=== PATIENT | female | born 1950 | race Caucasian/White ===

== ENCOUNTER 2019-08-16 10:26 | Outpatient (CLI) | payer MEDICARE, OTHER, SELFPAY ==
--- NOTE | ~2019-08-16 | XR_ITS ---
XR chest 2V DATE: 08/16/2019 10:51 INDICATION: Dyspnea TECHNIQUE: PA and lateral views COMPARISON: None FINDINGS: Normal heart size. Aortic calcification. No hilar or mediastinal enlargement. No pulmonary infiltrate or consolidation, pleural effusion or pulmonary vascular congestion or pneumo thorax. There is degenerative spurring of the thoracic spine. Diffuse osteopenia. IMPRESSION: No active cardiopulmonary disease Aortic atherosclerosis Reviewed, dictated and finalized at location A.
== END 2019-08-16 10:27 | disposition home or self-care (01) ==
PROVIDERS: PCP Nurse Practitioner Family; Visit Provider Nurse Practitioner Family
DX: R06.00 Dyspnea, unspecified (principal); I70.0 Atherosclerosis of aorta
CPT/HCPCS: 71046

== ENCOUNTER 2019-08-18 07:38 | Outpatient (CLI) | payer MEDICARE, OTHER, SELFPAY ==
--- NOTE | ~2019-08-18 | CT_ITS ---
EXAMINATION: CT abdomen pelvis wo con DATE: 08/18/2019 08:09 INDICATION: Abdominal mass TECHNIQUE: Computed tomography (CT) of the abdomen and pelvis was performed without intravenous contr ast. Automated exposure control and iterative reconstruction technique were employed. Exam dose: 496 .57 mGy-cm total exam DLP. COMPARISON: 07/11/2008 MRI abdomen 05/23/2013 CT abdomen FINDINGS: The lung bases are clear of infiltrate or consolidation. Normal heart size. No pericardial or pleural effusion. Small sliding hiatal hernia. There is evidence of extensive hepatic masses of variable size, most consistent with hepatic metastat ic disease. The gallbladder is present. No bile duct dilatation. No pancreatic mass lesion, calcification or duct al dilatation is evident. Normal splenic size. Normal left adrenal gland. Approximately 10.7 x 21 mm right adrenal mass. The right kidney measures approximately 10 cm length. 12 mm probable right renal cyst. Probable 12 mm right renal cyst. There is severe left renal atrophy. Two approximately 6.5 mm left renal probable cysts. No ureteral calculus or hydroureteronephrosis. There is extensive calcification of the abdominal aorta but no aneurysm. Iliac and femoral artery kong cifications are noted. No intraperitoneal or retroperitoneal or pelvic mass lesion or adenopathy or a scites is evident. There is minimal perihepatic fluid. Minimal fluid in the paracolic gutters. There is mild to moderate free fluid in the dependent pelvis There is extensive diverticulosis primarily of the sigmoid colon; no evidence of diverticulitis. No b owel obstruction or intraperitoneal free air. Small fat-containing umbilical hernia. Diffuse idiopathic hyperostosis of the lower thoracic spine. There is a transitional lumbosacral vertebra. There is degenerative disc disease of the lumbar spine as well as degenerative change at the apophyseal joints. IMPRESSION: Extensive hepatic masses suggesting metastatic disease. Chronic right adrenal mass, likely an adrenal adenoma Severe left renal atrophy Bilateral renal probable cysts Small sliding hiatal hernia Colonic diverticulosis Reviewed, dictated and finalized at Location A. Reviewed, dictated and finalized at location A.
== END 2019-08-18 07:39 | disposition home or self-care (01) ==
PROVIDERS: PCP Nurse Practitioner Family; Visit Provider Nurse Practitioner Family
DX: R19.00 Intra-abdominal and pelvic swelling, mass and lump, unspecified site (principal); R16.0 Hepatomegaly, not elsewhere classified; E27.9 Disorder of adrenal gland, unspecified; N26.1 Atrophy of kidney (terminal); K44.9 Diaphragmatic hernia without obstruction or gangrene; K57.90 Diverticulosis of intestine, part unspecified, without perforation or abscess without bleeding
CPT/HCPCS: 74176

== ENCOUNTER 2019-08-21 00:06 | Outpatient (CLI) | payer MEDICARE, OTHER, SELFPAY ==
[2019-08-21 16:10] LABS: SARS-CoV-2 RNA PCR Negative
== END 2019-08-21 00:07 | disposition home or self-care (01) ==
LOC: ANHCOVIDDT 00:06
PROVIDERS: PCP Nurse Practitioner Family; Visit Provider Internal Medicine Gastroenterology
DX: Z01.818 Encounter for other preprocedural examination (principal); Z11.59 Encounter for screening for other viral diseases; R10.13 Epigastric pain
CPT/HCPCS: 87635; C9803; U0003

== ENCOUNTER 2019-08-23 01:21 | Day surgery (SDC) | payer MEDICARE, OTHER, SELFPAY ==
[2019-08-22 11:35] VITALS: BMI 28.3
[2019-08-23 06:54] VITALS: BP 176/78; PULSE 92; RESP 18; TEMP 36.6; O2SAT 100; BMI 28.3
[2019-08-23] MEDS: LACTATED RINGERS 1,000 ML 150 ML IV CONT (07:08)
--- NOTE | 2019-08-23 07:09 | P.HP_ITS ---
History of Present Illness History of Present Illness Consent: Risks, benefits, and alternatives have been discussed and questions answered. Patient agrees to proceed with procedure. Chief complaint: Nausea, Vomiting Narrative: Kathrin Payton is a 68 year old W female Referred for gastroscopy for evaluation of a several month history of intermittent nausea vomiting and right upper quadrant abdominal and epigastric pain. Patient also has a 10 lb weight loss. She has had blood work through her primary physician on fortunately do not have access to the results. Patient did have a CT scan of her abdomen and pelvis and [facility] do have a copy of. This revealed extensive hepatic metastasis without a primary identified. Patient states she was to have a colonoscopy performed a year ago for blood was unable to tolerate her prep and thus did not have this done. She did not call to have a rescheduled. She did not have a colo guard test. Her father had colon cancer. I am not sure if she has had a CEA level, or other tumor markers. Meds Home Medications and Allergies Home Medications Medication Instructions Recorded Confirmed Type atorvastatin 20 mg PO DAILY 08/22/19 08/23/19 History bupropion HCl 150 mg PO DAILY 08/22/19 08/23/19 History insulin glargine U-300 conc 8 unit SUBCUT DAILY 08/22/19 08/23/19 History [Toujeo SoloStar U-300 Insulin] insulin lispro See Rx Instructions .ROUTE .COMPLEX 08/22/19 08/23/19 History levalbuterol tartrate 2 puff INHALATION BID PRN 08/22/19 08/23/19 History levothyroxine [Synthroid] 100 mcg PO DAILY 08/22/19 08/23/19 History lisinopril 20 mg PO DAILY 08/22/19 08/23/19 History prednisone 5 mg PO WEEKLY 08/22/19 08/23/19 History vit C,F-Vs-cnvnm-lutein-zeaxan 1 cap PO DAILY 08/22/19 08/23/19 History [Healthy Eyes Lutein-Zeaxanthin] Allergies Allergy/AdvReac Type Severity Reaction Status Date / Time codeine AdvReac Intermediate NAUSEA Verified 08/23/19 06:53 oxycodone AdvReac Intermediate Dizziness Verified 08/23/19 06:53 Contrast Media Allergy Intermediate HIVES Uncoded 08/23/19 06:53 Vital Signs Vital Signs - 24 hr 08/23/19 06:54 Temperature 36.6 C Pulse Rate 92 Respiratory Rate 18 Blood Pressure 176/78 H Pulse Oximetry 100 Exam Narrative: Exam Narrative: Lungs clear to auscultation percussion cardiovascular exam regular rate without murmur gallop abdominal exam bowel sounds are present. There is tenderness in the right upper quadrant epigastric region. Hepatomegaly is present. No ascites detected. Extremities without e jose Assessment and Plan Additional Plan patient referred for gastroscopy for evaluation of upper abdominal pain nausea vomiting a CT scan which reveals diffuse hepatic metastasis.
[2019-08-23 07:17] LABS: Glucose Point of Care 294 (65-105)
[2019-08-23 07:17] LABS: Glucose Point of Care 308 (65-105)
--- NOTE | 2019-08-23 07:35 | WPDANESEPPF ---
Anes - Initial Pre Proc Eval Procedure: Operation Date: 08/23/19 08:00 Proposed Procedures p Esophagogastroduodenoscopy - Charlie Dyer MD Date/Time: 08/23/19 07:35 Surgeon: Charlie Dyer MD Pre Op Diagnosis: Nausea, Vomiting Patient Data Age: 68 Gender: F Height: 5 ft 3 in Weight: 72.6 kg Last Vital Signs Temp 97.9 F 08/23/19 06:54 Pulse 92 08/23/19 06:54 Resp 18 08/23/19 06:54 BP 176/78 H 08/23/19 06:54 Pulse Ox 100 08/23/19 06:54 Allergies Allergy/AdvReac Type Severity Reaction Status Date / Time codeine AdvReac Intermediate NAUSEA Verified 08/23/19 06:53 oxycodone AdvReac Intermediate Dizziness Verified 08/23/19 06:53 Contrast Media Allergy Intermediate HIVES Uncoded 08/23/19 06:53 Home Medications Medication Instructions Recorded Confirmed Type atorvastatin 20 mg PO DAILY 08/22/19 08/23/19 History bupropion HCl 150 mg PO DAILY 08/22/19 08/23/19 History insulin glargine U-300 conc 8 unit SUBCUT DAILY 08/22/19 08/23/19 History [Toujeo SoloStar U-300 Insulin] insulin lispro See Rx Instructions .ROUTE .COMPLEX 08/22/19 08/23/19 History levalbuterol tartrate 2 puff INHALATION BID PRN 08/22/19 08/23/19 History levothyroxine [Synthroid] 100 mcg PO DAILY 08/22/19 08/23/19 History lisinopril 20 mg PO DAILY 08/22/19 08/23/19 History prednisone 5 mg PO WEEKLY 08/22/19 08/23/19 History vit C,Y-Mg-eilut-lutein-zeaxan 1 cap PO DAILY 08/22/19 08/23/19 History [Healthy Eyes Lutein-Zeaxanthin] Laboratory Tests 08/23/19 08/23/19 07:12 07:14 POC Capillary Glucose 308 mg/dl H mg/dl 294 mg/dl H mg/dl (65-105) (65-105) Patient hx anesthesia problems: none Family hx anesthesia problems: none Anes - Eval Final PreProcedure Day of Procedure 08/23/19 07:35 Patient weight: overweight Heart: regular rate and rhythm Lungs: clear to auscultation Airway: Mallampati scale class II Neurological: alert and oriented Last oral intake: >/= 8 hours ASA classification: IV Emergent: no Anesthetic plan: proceed Anesthesia type and monitoring: general GIVS and standard monitoring Informed Consent: The patient's anesthetic plan and its attendant risks and benefits were discussed with the patient/family/POA. Questions were solicited and answers provided to the satisfaction of the patient/family/POA.
[2019-08-23 08:16] VITALS: BP 124/73; PULSE 91; RESP 20; O2SAT 100
[2019-08-23 08:26] VITALS: BP 138/86; PULSE 89; RESP 19; O2SAT 100
[2019-08-23 08:32] LABS: Glucose Point of Care 265 (65-105)
[2019-08-23 08:36] VITALS: BP 138/65; PULSE 78; RESP 21; O2SAT 99
== END 2019-08-23 08:50 | disposition home or self-care (01) ==
PROVIDERS: PCP Nurse Practitioner Family; Visit Provider Internal Medicine Gastroenterology
PROC: 0DJ08ZZ Inspection of Upper Intestinal Tract, Via Natural or Artificial Opening Endoscopic (ICD-10-PCS; CPT 43235; principal; 2019-08-23 08:00)
DX: K44.9 Diaphragmatic hernia without obstruction or gangrene (principal); K29.50 Unspecified chronic gastritis without bleeding; R93.2 Abnormal findings on diagnostic imaging of liver and biliary tract; R63.4 Abnormal weight loss; Z80.0 Family history of malignant neoplasm of digestive organs; Z79.4 Long term (current) use of insulin
CPT/HCPCS: 43239; 88305; J2704; J7120

== ENCOUNTER 2019-08-24 15:21 | Outpatient (CLI) | payer MEDICARE, OTHER, SELFPAY ==
--- NOTE | ~2019-08-24 | MM_ITS ---
EXAMINATION: MM screening erik BI w tarsha HISTORY: Screening mammogram TECHNIQUE: Craniocaudal and mediolateral oblique 3-D tomosynthesis images were obtained and synthetic 2-D images were generated. CAD analysis was submitted and interpreted. COMPARISON: No prior mammogram is available for comparison at this institution. BREAST PARENCHYMAL COMPOSITION: The breasts are almost entirely fatty. FINDINGS: RIGHT BREAST: There is no evidence of suspicious mass, calcification, or architectural distortion to suggest malignancy. LEFT BREAST: There are grouped indeterminate calcifications in the middle third of the central breast 4.5 cm from the nipple. IMPRESSION: 1. Indeterminate left breast calcifications. 2. Magnification views are recommended. BI-RADS Category 0: Incomplete: Needs additional imaging evaluation. Reviewed, dictated and finalized at location A.
--- NOTE | ~2019-08-24 | CT_ITS ---
EXAMINATION: CT lung screening DATE: 08/24/2019 16:35 INDICATION: Low dose screening. History of liver metastases. TECHNIQUE: Computed tomography (CT) of the chest was performed without intravenous contrast. The dose -length product was 116.95 mGy-cm. Automated exposure control and iterative reconstruction technique were employed. COMPARISON: CT abdomen dated 08/18/2019 FINDINGS: There is a right upper lobe mass measuring 1.8 x 1.3 cm, image 41. There are nonenlarged me diastinal lymph nodes, nonspecific. No significant pleural or pericardial effusion. Heart size is nor mal. There is a 3 mm fissural nodule on the right, coronal image 54. There is a 3 mm right upper lobe nodule, image 28. There is a subsolid 5 mm nodule left upper lobe. There is a 3 mm left lower lobe n odule, image 85. There are multiple hypodense masses of the liver, most likely metastases. There is an atrophic left k idney. There is small amount of perihepatic ascites. IMPRESSION: 1. Right upper lobe mass measuring 1.8 cm, concerning for bronchogenic carcinoma. Recommend percutane ous biopsy or PET/CT scan. 2: Multiple additional pulmonary nodules measuring 5 mm or less as described above which may be infec tious/inflammatory, although metastatic disease not excluded. 3: Multiple hypodense masses of the liver, concerning for metastatic disease. Reviewed, dictated and finalized at location A. IMPRESSION: 1. Right upper lobe mass measuring 1.8 cm, concerning for bronchogenic carcinom a. Recommend percutaneous biopsy or PET/CT scan. 2: Multiple additional pulmonary nodules measuring 5 mm or less as described ab ove which may be infectious/inflammatory, although metastatic disease not exclu ded. 3: Multiple hypodense masses of the liver, concerning for metastatic disease.
== END 2019-08-24 15:22 | disposition home or self-care (01) ==
PROVIDERS: PCP Nurse Practitioner Family; Visit Provider Nurse Practitioner Family
DX: Z12.31 Encounter for screening mammogram for malignant neoplasm of breast (principal); Z12.2 Encounter for screening for malignant neoplasm of respiratory organs; Z87.891 Personal history of nicotine dependence; R91.8 Other nonspecific abnormal finding of lung field; R92.8 Other abnormal and inconclusive findings on diagnostic imaging of breast
CPT/HCPCS: 77063; 77067; G0297

== ENCOUNTER 2019-09-01 12:46 | Outpatient (CLI) | payer MEDICARE, OTHER, SELFPAY ==
--- NOTE | 2019-09-01 12:49 | ECG_ITS ---
Measurements Intervals [place] Rate: 81 P: 66 SD: 139 QRS: 33 QRSD: 97 T: 7 QT: 399 QTc: 465 Interpretive Statements SINUS RHYTHM INCOMPLETE RIGHT BUNDLE BRANCH BLOCK LOW QRS VOLTAGE IN PRECORDIAL LEADS BORDERLINE ST-T WAVE ABNORMALITY- ANT/INF LEADS BASELINE ARTIFACT- I, III, AVL, AVF, V6 BORDERLINE ECG Electronically Signed On 09-01-2019 13:13:50 CDT by Hamilton Hein D.O.
[2019-09-01 13:35] LABS: Basophils Absolute Auto 0.1 K/mm3 (0.0-0.1); Basophils Percent Auto 0.6 % (0.2-1.2); Eosinophils Absolute Auto 0.2 K/mm3 (0-0.3); Eosinophils Percent Auto 1.3 % (0-4.4); Hematocrit 39.9 % (37.0-47.0); Hemoglobin 12.4 g/dL (12.0-15.0); Immature Granulocyte Absolute 0.07 K/mm3 (0.00-0.031); Immature Granulocyte Percent A 0.5 % (0-0.5); Immature Platelet Fraction Pct 12.7 % (0.9-11.2); Lymphocytes Absolute Auto 1.01 K/mm3 (0.9-3.2); Lymphocytes Percent Auto 7.1 % (18.3-44.2); Mean Corpuscular HGB Conc 31.1 g/dl (32-36); Mean Corpuscular Hemoglobin 28.9 pg (26-34); Mean Platelet Volume 14.2 fl (7.4-10.4); Monocytes Absolute Auto 1.1 K/mm3 (0.1-0.6); Monocytes Percent Auto 7.7 % (2.6-8.5); Neutrophils Absolute Auto 11.9 K/mm3 (1.3-6.7); Neutrophils Percent Auto 82.8 % (45.5-73.1); Platelet Count Result 131 k/mm3 (150-375); Red Blood Count 4.29 M/mm3 (4.2-5.4); Red Cell Distribution Width 14.7 % (11.5-14.5); White Blood Count 14.3 K/mm3 (4.5-10.0)
[2019-09-01 13:45] LABS: Blood Urea Nitrogen 30 mg/dL (7-17); Calcium 8.7 mg/dL (8.4-10.2); Carbon Dioxide 22 mmol/L (22-30); Chloride 109 mmol/L (98-107); Estimated Glomerular Filt Rate 35; Glucose 182 mg/dL (65-105); Potassium 4.1 mmol/L (3.4-5.0); Sodium 137 mmol/L (137-145)
[2019-09-01 13:48] LABS: Prothrombin Time 13.2 Seconds (11.1-14.7)
[2019-09-01 13:49] LABS: Partial Thromboplastin Time 29.7 SECONDS (22.3-36.8)
== END 2019-09-01 12:47 | disposition home or self-care (01) ==
LOC: ANHSURGERY 12:49
PROVIDERS: Anesthesiology; PCP Nurse Practitioner Family; Visit Provider Surgery
DX: I10 Essential (primary) hypertension (principal); E11.9 Type 2 diabetes mellitus without complications; C34.90 Malignant neoplasm of unspecified part of unspecified bronchus or lung; I45.10 Unspecified right bundle-branch block
CPT/HCPCS: 36415; 80048; 85025; 85055; 85610; 85730; 93005

== ENCOUNTER 2019-09-04 07:07 | Outpatient (CLI) | payer MEDICARE, OTHER, SELFPAY ==
[2019-08-29 10:28] VITALS: BMI 28.3
[2019-09-04] VITALS (9 sets, daily range): BP systolic 138–155; BP diastolic 69–91; PULSE 70–84; RESP 12–20; TEMP 36.3; O2SAT 97–99
--- NOTE | ~2019-09-04 | US_ITS ---
EXAMINATION: US biopsy liver DATE: 09/04/2019 09:58 INDICATION: Malignant neoplasm of the right lung with liver metastases TECHNIQUE: The procedure including the risks and benefits was discussed with the patient. Risks discu ssed included bleeding and infection. The patient understood the risks and agreed to proceed. The sk in overlying the liver was prepped and draped in usual sterile fashion. Anesthetic was administered with 1% lidocaine subcutaneously. An 18 gauge core biopsy needle was advanced under continuous ultra sound observation to the lesion of interest. 3 core biopsy specimens were obtained. The needle was removed and the entry site was cleaned and dressed. Post procedure ultrasound demonstrated no hemorr krish. FINDINGS: Ultrasound images demonstrate biopsy needle advanced into a subcapsular mass in the medial segment of the left hepatic lobe which results in focal bulging of the liver capsule. IMPRESSION: 1. Successful Ultrasound-guided biopsy of one of numerous masses scattered throughout the liver. Reviewed, dictated and finalized at location A. IMPRESSION: 1. Successful Ultrasound-guided biopsy of one of numerous masses scattered thro ughout the liver.
--- NOTE | ~2019-09-04 | MR_ITS ---
EXAMINATION: MR brain/brain stem wo con DATE: 09/04/2019 11:15 INDICATION: Malignant neoplasm of right lung. TECHNIQUE: Magnetic resonance imaging (MRI) of the brain and brainstem was performed without intraven ous contrast due to low estimated GFR. Sequences included sagittal and axial T1-weighted FSE, axial d iffusion-weighted FS EPI, axial T2*-weighted GRE, axial T2-weighted FLAIR Propeller, and axial T2-rajinder ghted Propeller. Apparent diffusion coefficient (ADC) maps were created. COMPARISON: None. FINDINGS: There are scattered areas of nonspecific increased T2-weighted signal intensity in the cere bral white matter, which is within normal limits for the patient's age. There is no intracranial hemo rrhage, acute infarction, or abnormal intracranial mass lesion. The ventricles are normal in size. Th e paranasal sinuses are clear. The orbits are normal. The mastoid air cells are normal. IMPRESSION: 1. Normal aging brain. Reviewed, dictated and finalized at location E. IMPRESSION: 1. Normal aging brain.
[2019-09-04 07:28] LABS: Immature Platelet Fraction Pct 11.2 % (0.9-11.2); Mean Platelet Volume 13.1 fl (7.4-10.4); Platelet Count Result 137 k/mm3 (150-375)
[2019-09-04 07:37] LABS: INR 1.1; Prothrombin Time 13.8 Seconds (11.1-14.7)
[2019-09-04 08:05] LABS: Estimated CRCL calculation 28 ml/min; Estimated Glomerular Filt Rate 30
--- NOTE | 2019-09-04 10:01 | SUR.PHASEII ---
1000- assisted to recliner. Gait steady. bandaid to upper abd dry and intact. saline lock right forearm.
[2019-09-04 11:33] LABS: Glucose Point of Care 196 (65-105)
--- NOTE | 2019-09-04 13:01 | SUR.PHASEII ---
1300- pt blood sugar at 1130 was 197
== END 2019-09-04 14:03 | disposition home or self-care (01) ==
PROVIDERS: Radiology Diagnostic Radiology; PCP Nurse Practitioner Family; Visit Provider Internal Medicine Hematology & Oncology
DX: C34.91 Malignant neoplasm of unspecified part of right bronchus or lung (principal); C22.7 Other specified carcinomas of liver
CPT/HCPCS: 36415; 47000; 70551; 76942; 85049; 85055; 85610; 88307; 88342

== ENCOUNTER 2019-09-05 00:14 | Outpatient (CLI) | payer MEDICARE, OTHER, SELFPAY ==
[2019-09-05 18:58] LABS: SARS-CoV-2 RNA PCR Negative
== END 2019-09-05 00:15 | disposition home or self-care (01) ==
LOC: ANHCOVIDDT 00:14
PROVIDERS: PCP Nurse Practitioner Family; Visit Provider Surgery
DX: Z01.812 Encounter for preprocedural laboratory examination (principal); Z11.59 Encounter for screening for other viral diseases
CPT/HCPCS: 87635; C9803; U0003

== ENCOUNTER 2019-09-06 01:04 | Day surgery (SDC) | payer MEDICARE, OTHER, SELFPAY ==
[2019-08-31 09:19] VITALS: BMI 28.3
--- NOTE | ~2019-09-06 | XR_ITS ---
EXAMINATION: XR fl guide central line place DATE: 09/06/2019 15:42 INDICATION: Port placement. TECHNIQUE: 31 intraoperative fluoroscopic images of the chest were obtained. I was not present. Fluor oscopy exposure time was 21 seconds. COMPARISON: Chest CT 08/24/2019 FINDINGS: There is a right internal jugular port with tip at superior cavoatrial junction. IMPRESSION: 1. Right internal jugular port with tip at superior cavoatrial junction. Reviewed, dictated and finalized at location A.
--- NOTE | ~2019-09-06 | XR_ITS ---
EXAMINATION: XR chest port-a-cath/central DATE: 09/06/2019 16:06 INDICATION: Port placement. TECHNIQUE: A single frontal view of the chest was obtained. COMPARISON: Chest 2 views 08/16/2019 FINDINGS: There is a nodule in right lung upper lobe. No pleural effusion or pneumothorax. The heart size is normal. There is a right internal jugular port with tip in superior vena cava. IMPRESSION: 1. Port tip in superior vena cava. 2. Nodule in right lung upper lobe, consistent with primary bronchogenic carcinoma. Reviewed, dictated and finalized at location A. IMPRESSION: 1. Port tip in superior vena cava. 2. Nodule in right lung upper lobe, consistent with primary bronchogenic carcin modest[place].
[2019-09-06 12:49] VITALS: BP 145/63; PULSE 90; RESP 20; TEMP 36.4; O2SAT 100
--- NOTE | 2019-09-06 13:00 | WPDANESEPPF ---
Anes - Initial Pre Proc Eval Procedure: Operation Date: 09/06/19 14:30 Proposed Procedures p Insertion Port A Cath - Amando Mendoza MD Date/Time: 09/06/19 13:00 Surgeon: Amando Mendoza MD Pre Op Diagnosis: malignant neoplasm right lung unspecified site Patient Data Age: 68 Gender: F Height: 5 ft 3 in Weight: 71.3 kg Last Vital Signs Temp 97.5 F L 09/06/19 12:49 Pulse 90 09/06/19 12:49 Resp 20 09/06/19 12:49 BP 145/63 H 09/06/19 12:49 Pulse Ox 100 09/06/19 12:49 Allergies Allergy/AdvReac Type Severity Reaction Status Date / Time codeine AdvReac Intermediate NAUSEA Verified 09/06/19 12:44 oxycodone AdvReac Intermediate Dizziness, Verified 09/06/19 12:44 vomiting Contrast Media Allergy Intermediate HIVES Uncoded 09/06/19 12:44 Home Medications Medication Instructions Recorded Confirmed Type Healthy Eyes Lutein-Zeaxanthin 1 cap PO DAILY 08/22/19 09/06/19 History Toujeo SoloStar U-300 Insulin 8 unit SUBCUT DAILY 08/22/19 09/06/19 History atorvastatin 20 mg PO DAILY 08/22/19 09/06/19 History bupropion HCl 150 mg PO DAILY 08/22/19 09/06/19 History insulin lispro See Rx Instructions .ROUTE .COMPLEX 08/22/19 09/06/19 History levalbuterol tartrate 2 puff INHALATION BID PRN 08/22/19 09/06/19 History levothyroxine [Synthroid] 100 mcg PO DAILY 08/22/19 09/06/19 History lisinopril 20 mg PO DAILY 08/22/19 09/06/19 History prednisone 5 mg PO WEEKLY 08/22/19 09/06/19 History docusate sodium [Stool Softener] 50 mg PO DAILY 08/31/19 09/06/19 History famotidine [Pepcid] 20 mg PO DAILY 08/31/19 09/06/19 History Patient hx anesthesia problems: none Family hx anesthesia problems: none PMFSH Past Medical History Medical History (Updated 09/06/19 @ 13:00 by Darrius Hooks MD) Diabetes GERD (gastroesophageal reflux disease) Hyperlipidemia Hypertension Hypothyroid Liver carcinoma Lung cancer Anes - Eval Final PreProcedure Day of Procedure 09/06/19 13:00 Patient weight: normal and overweight Heart: regular rate and rhythm Lungs: clear to auscultation Airway: Mallampati scale class II Neurological: alert and oriented Last oral intake: >/= 8 hours ASA classification: IV Emergent: no Anesthetic plan: proceed Anesthesia type and monitoring: general GIVS and standard monitoring Informed Consent: The patient's anesthetic plan and its attendant risks and benefits were discussed with the patient/family/POA. Questions were solicited and answers provided to the satisfaction of the patient/family/POA.
[2019-09-06 13:06] LABS: Glucose Point of Care 189 (65-105)
[2019-09-06] MEDS: LACTATED RINGERS 1,000 ML 30 ML IV CONT (13:09)
--- NOTE | 2019-09-06 14:15 | PM.HPGS ---
History of Present Illness History of Present Illness Consent: Risks, benefits, and alternatives of a Port-A-Cath have been discussed and questions answered. Patient agrees to proceed with procedure. Chief complaint: malignant neoplasm right lung unspecified site Narrative: Kathrin Payton is a 68 year old female who has a history of smoking approximately 1 pack a day for 40 years. She has since developed bilateral lower extremity swelling along with checks chest aching S chest x-ray done more than a month ago came back negative free gesture heart failure but showed several masses. A CT scan of the abdomen and pelvis was completed showing liver metastasis and a fairly large 10 x 21 mm right adrenal mass. A chest CT on August 23 showed a 1.8 x 1.3 cm right upper lobe lung mass. Patient and Dr. Mills are planning some chemotherapy to try to give her some more time period also to shrink these tumors. I have been asked to place a Port-A-Cath. See plan below. Review of Systems Constitutional: Constitutional: Reports no additional constitutional complaints, Reports fatigue and Denies malaise Eyes: Eyes: Denies change in vision and Denies loss of vision ENT: Reports Normal hearing present, Denies change in voice, Denies dizziness, Denies hoarseness and Denies sore throat Cardiovascular: Cardiovascular: Denies chest pain, Denies leg edema and Denies dyspnea Respiratory: Respiratory: Denies cough, Denies dyspnea and Denies wheezing Comments: Patient has lung cancer on the right by chest x-ray Gastrointestinal: Gastrointestinal: Denies hematochezia, Denies change in bowel habits and Denies heartburn Genitourinary: Genitourinary: Denies urinary frequency and Denies urinary incontinence Neurologic: Reports Normal hearing present, Denies confusion, Denies dizziness, Denies loss of vision, Denies memory loss and Denies seizure-like activity Psychiatric: Psychiatric: Denies confusion, Denies depression and Denies memory loss Endocrine: Endocrine: Denies cold intolerance and Reports fatigue Hematologic/Lymphatic: Hematologic/Lymphatic: Denies easy bleeding and Denies easy bruising Allergic/Immunologic: Allergic/Immunologic: Denies wheezing PMFSH Past Medical History Medical History (Updated 09/06/19 @ 14:23 by Amando Mendoza MD) Diabetes GERD (gastroesophageal reflux disease) Hyperlipidemia Hypertension Hypothyroid Liver carcinoma Lung cancer (~06/2019) Meds Home Medications and Allergies Home Medications Medication Instructions Recorded Confirmed Type Healthy Eyes Lutein-Zeaxanthin 1 cap PO DAILY 08/22/19 09/06/19 History Touwinnie CummingsoStar U-300 Insulin 8 unit SUBCUT DAILY 08/22/19 09/06/19 History atorvastatin 20 mg PO DAILY 08/22/19 09/06/19 History bupropion HCl 150 mg PO DAILY 08/22/19 09/06/19 History insulin lispro See Rx Instructions .ROUTE .COMPLEX 08/22/19 09/06/19 History levalbuterol tartrate 2 puff INHALATION BID PRN 08/22/19 09/06/19 History levothyroxine [Synthroid] 100 mcg PO DAILY 08/22/19 09/06/19 History lisinopril 20 mg PO DAILY 08/22/19 09/06/19 History prednisone 5 mg PO WEEKLY 08/22/19 09/06/19 History docusate sodium [Stool Softener] 50 mg PO DAILY 08/31/19 09/06/19 History famotidine [Pepcid] 20 mg PO DAILY 08/31/19 09/06/19 History Allergies Allergy/AdvReac Type Severity Reaction Status Date / Time codeine AdvReac Intermediate NAUSEA Verified 09/06/19 12:44 oxycodone AdvReac Intermediate Dizziness, Verified 09/06/19 12:44 vomiting Contrast Media Allergy Intermediate HIVES Uncoded 09/06/19 12:44 Vital Signs Vital Signs - 24 hr 09/06/19 12:49 Temperature 36.4 C L Pulse Rate 90 Respiratory Rate 20 Blood Pressure 145/63 H Pulse Oximetry 100 Exam Const: General: cooperative, healthy appearing, no acute distress, well developed and alert; No confusion Nutritional Appearance: well nourished Orientation/consciousness: patient oriented x3 and No confusion Limitations: no limitati
[2019-09-06] MEDS: ceFAZolin 2 GM/D5W 50 ML 2 GM/50 ML BAG IVPB (14:46)
[2019-09-06] MEDS: IBUPROFEN IV 800 MG/200 ML 800 MG/200 ML BAG 400 MG IVPB (14:53)
[2019-09-06] MEDS: BUPIVACAINE/EPINEPHRINE 0.5% 30 ML VIAL 20 ML INFILTRATE (15:10)
[2019-09-06] MEDS: HEPARIN SODIUM 5,000 UNITS/ML VIAL 5000 UNITS IRRIGATION (15:11)
[2019-09-06 15:54] VITALS: BP 135/63; PULSE 69; RESP 20; TEMP 36.3
--- NOTE | 2019-09-06 15:54 | PM.PROC ---
Procedure Note - Detailed Date of procedure: 09/06/19 Pre-op diagnosis: malignant neoplasm right lung unspecified site Post-op diagnosis: same Procedure performed: placement of Port-A-Cath Description of procedure: Patient was seen and marked in the pre-op area prior to coming to the OR. Patient was brought to the operating room. She was placed supine on the operating table and general IV sedation was induced. The nurse addictions counselor assistant provided oxygen and IV sedation. Patient's head was carefully turned to the left side while in the supine position and the patient's entire neck and anterior chest on both sides was prepped and draped in the usual sterile fashion. Following this the appropriate time-out was completed confirming procedure and patient. We confirmed that all the needed equipment was present in the room. Following this the ultrasound probe was draped into the field and using the probe we carefully identified the carotid artery and jugular vein on the right neck. I marked the skin directly over the Rt. internal jugular vein. Following this, using the continuous ultrasound guidance, a Cook needle was placed through the skin into this vein with one stick. I then was able to draw back good dark blood. Once this was completed a guidewire using a J-tip was advanced through the needle and then the needle and the guidewire cover were withdrawn. C-arm fluoroscopy was used to confirm that the guidewire was nicely in the central venous system. Once this was confirmed with the C - arm I preceded on by making the pocket for the port on the patient's anterior right chest approximately 3 centimeters below the clavicle overlying the chest wall. Local anesthetic was infiltrated into the skin where there was a transverse incision marked out. Incision was made and we made a pocket inferior to the incision with just a little dissection superior. The Bard low-profile port was tried in the pocket and seemed to fit well. Following this the catheter which had been placed on a tunneling device was tunneled from the port site on the anterior right chest up to the right neck where a small incision had been made with an #11 blade knife. Then the catheter was pulled through so that we would have 15 centimeters to put into the central venous system once the dilation took place. Following this we placed the dilator and sheath over the guidewire in the jugular vein and carefully dilated the tract into the central venous system. The guidewire and dilator were then removed, carefully covering the end of the sheath to prevent air embolus. The end of the catheter which had been cut off straight across and the tip checked was then inserted into the sheath and into the neck. I then carefully pulled the 2 arms of the tear-away sheath away as the zoning assistant held the catheter in position with a DeBakey forceps. Following this we checked the position of the catheter with C-arm fluoroscopy confirming that the tip seemed to be in the distal superior vena cava near the junction with the right atrium. I felt that it was in good position and so the rest of the catheter was pulled down toward the feet into the port site. We then measured to the appropriate position to cut the catheter to attach it to the port stem. Then the connector sealing device for the catheter port was placed onto the catheter and then the catheter cut to the appropriate length and inserted onto the stem of the port. Then the connector was advanced onto the stem over the catheter sealing it to the port. A single 3- 0 Prolene suture was also used during this to suture the connector to the port and to the underlying musculature. Following this at one other site the port was sutured to the underlying musculature with the 3-0 Proline. Both prior to connecting the catheter to the port and then using a straight Esteves needle following this connection, the port was aspirated of good dark blood and flushed with heparinized saline to ke
[2019-09-06 16:15] VITALS: BP 149/52; PULSE 73; RESP 14
[2019-09-06 16:45] VITALS: RESP 16
== END 2019-09-06 16:58 | disposition home or self-care (01) ==
PROVIDERS: PCP Nurse Practitioner Family; Visit Provider Surgery
PROC: (CPT 36561; principal; 2019-09-06 14:30)
DX: C34.11 Malignant neoplasm of upper lobe, right bronchus or lung (principal); C78.7 Secondary malignant neoplasm of liver and intrahepatic bile duct; E27.9 Disorder of adrenal gland, unspecified; I10 Essential (primary) hypertension; E11.9 Type 2 diabetes mellitus without complications; Z79.4 Long term (current) use of insulin; E78.5 Hyperlipidemia, unspecified; E03.9 Hypothyroidism, unspecified; K21.9 Gastro-esophageal reflux disease without esophagitis; Z88.6 Allergy status to analgesic agent; Z91.041 Radiographic dye allergy status
CPT/HCPCS: 36561; 77001; C1788; J0690; J1644; J1741; J2250; J2405; J2704; J3010; J7030; J7120

== ENCOUNTER 2019-09-20 09:06 | Outpatient (CLI) | payer MEDICARE, OTHER, SELFPAY ==
[2019-09-19 15:33] VITALS: BMI 27.2
[2019-09-20] VITALS (9 sets, daily range): BP systolic 137–161; BP diastolic 59–94; PULSE 74–91; RESP 16–20; O2SAT 96–100
--- NOTE | ~2019-09-20 | XR_ITS ---
EXAMINATION: XR chest 1V portable DATE: 09/20/2019 12:11 INDICATION: One hour post right lung biopsy. TECHNIQUE: frontal view of the chest was obtained. COMPARISON: Chest radiograph dated 09/20/2019 at 11:12 AM FINDINGS: Small right apical pneumothorax. The biopsied nodule can be seen in the right upper lung zone. No oth er airspace opacities, pulmonary edema, pleural effusion or left-sided pneumothorax. The cardiomedias tinal silhouette is normal and remains midline. Right internal jugular central venous port catheter w ith distal tip at the midsuperior vena cava. IMPRESSION: 1. Interval development of a small right apical pneumothorax. Per discussion with the patient's nurse she is maintaining oxygen saturation of 97% on room air. Reviewed, dictated and finalized at location A. IMPRESSION: 1. Interval development of a small right apical pneumothorax. Per discussion wi th the patient's nurse she is maintaining oxygen saturation of 97% on room air.
--- NOTE | ~2019-09-20 | XR_ITS ---
EXAMINATION: XR chest 1V DATE: 09/20/2019 11:14 INDICATION: Status post percutaneous biopsy of a right upper lobe nodule. TECHNIQUE: frontal view of the chest was obtained. COMPARISON: 09/06/2019 FINDINGS: Right upper lobe nodule projecting over the right mid lung zone. No other airspace opacities, pulmona ry edema, pleural effusion or pneumothorax. The cardiomediastinal silhouette is normal. Right interna l jugular central venous port catheter with distal tip at the midsuperior vena cava. IMPRESSION: 1. No pneumothorax or other acute cardiopulmonary disease post biopsy of a right upper lobe nodule wh ich is concerning for malignancy. Reviewed, dictated and finalized at location A. IMPRESSION: 1. No pneumothorax or other acute cardiopulmonary disease post biopsy of a righ t upper lobe nodule which is concerning for malignancy.
--- NOTE | ~2019-09-20 | CT_ITS ---
EXAMINATION: CT biopsy lung DATE: 09/20/2019 11:09 INDICATION: Malignant neoplasm of the right lung. TECHNIQUE: The procedure including the risks and benefits was discussed with the patient. Risks discu ssed included infection, approximately 1/20 risk of symptomatic hemorrhage beyond mild hemoptysis, ap proximately 1/3 risk of pneumothorax, and approximately 1/10 risk of pneumothorax severe enough to wa rrant chest tube placement. The patient understood the risks and agreed to proceed. The patient was p laced supine. The skin overlying the parasternal anterior right chest was prepped and draped in ster ile fashion. Anesthetic was administered with 1% lidocaine subcutaneously. A 19 gauge outer needle was advanced under CT guidance to the lesion of interest. A 20 gauge core biopsy needle was then used to obtain 3 core biopsy specimens. The needle was removed and the entry site was cleaned and dressed . There were no immediate complications. The mAs was manually decreased to minimize radiation dosage . The dose-length product was 111.74 mGy-cm. FINDINGS: CT images demonstrate the outer needle tip adjacent to a 1.6 x 1.3 cm nodule in the anterio r segment of the right upper lobe. IMPRESSION: 1. Successful CT-guided biopsy of a 1.6 x 1.3 cm right upper lobe nodule. Reviewed, dictated and finalized at location A.
--- NOTE | ~2019-09-20 | XR_ITS ---
EXAMINATION: XR chest 1V portable DATE: 09/20/2019 14:13 INDICATION: Status post percutaneous right lung biopsy. TECHNIQUE: frontal view of the chest was obtained. COMPARISON: Chest radiograph dated 09/20/2019 at 12:06 PM FINDINGS: Again seen is a small right apical pneumothorax which appears decreased in size since the prior study although the pneumothorax may be exaggerated on the prior study due to more lordotic positioning. Th e biopsied right upper lobe nodule can be seen in the right midlung zone and remain suspicious for ma lignancy. No other airspace opacities, pleural effusion or left-sided pneumothorax. The cardiomediast inal silhouette is normal. Right internal jugular central venous port catheter with distal tip at the midsuperior vena cava. IMPRESSION: 1. Decreasing small left apical pneumothorax post percutaneous biopsy of a right upper lobe nodule wh ich is concerning for malignancy. Reviewed, dictated and finalized at location A. IMPRESSION: 1. Decreasing small left apical pneumothorax post percutaneous biopsy of a righ t upper lobe nodule which is concerning for malignancy.
[2019-09-20 09:37] LABS: Mean Platelet Volume 13.6 fl (7.4-10.4); Platelet Count Result 145 k/mm3 (150-375)
[2019-09-20 09:47] LABS: INR 1.1; Prothrombin Time 13.4 Seconds (11.1-14.7)
[2019-09-20 11:29] LABS: Glucose Point of Care 223 (65-105)
--- NOTE | 2019-09-20 13:56 | SUR.PHASEII ---
1130 PT DECLINED TO CALL FAMILY. 1215 PORTABLE XRAY [address] SORIANO CALLED TO ASK WHETHER PT CAN USE BATHROOM. HE OKAY'D FOR HER TO USE BATHROOM AND THEN RETURN TO LAY FLAT ON STRETCHER.
--- NOTE | 2019-09-20 14:29 | SUR.PHASEII ---
[address] SORIANO CALLED WHO CLEARED XRAY. 1430 PT DRESSED SITTING UP. DR. SORIANO HERE TO SPEAK TO PT. AWAITING RIDE.
== END 2019-09-20 09:07 | disposition home or self-care (01) ==
LOC: ANHSURGERY 09:08
PROVIDERS: Radiology Diagnostic Radiology; PCP Nurse Practitioner Family; Visit Provider Internal Medicine Hematology & Oncology
DX: C34.11 Malignant neoplasm of upper lobe, right bronchus or lung (principal)
CPT/HCPCS: 32405; 36415; 71045; 77012; 81210; 81235; 81275; 81276; 85049; 85610; 88271; 88274; 88305; 88342; 88360; 88381

== ENCOUNTER 2019-10-03 13:34 | Outpatient (CLI) | payer MEDICARE, OTHER, SELFPAY ==
--- NOTE | ~2019-10-03 | PE_ITS ---
EXAMINATION: PET skull to mid thigh DATE: 10/03/2019 15:39 INDICATION: Malignant neoplasm of right lung. TECHNIQUE: Blood glucose level was 99 mg/dL. 10.986 mCi of 18-fluorodeoxyglucose (18-FDG) was adminis tered i.v. Low dose computed tomography (CT) images were acquired from the base of the brain to the p roximal thighs for attenuation correction and anatomic localization. Automated exposure control was e mployed. Dose-length product (DLP) was 742 mGy-cm. Positron emission tomography (PET) images were acq uired in the same distribution. COMPARISON: Chest CT 08/24/2019 FINDINGS: Head/neck: There are no pathologically enlarged lymph nodes. Chest: There is a 1.6 cm nodule in right lung upper lobe with maximum SUV of 6.2. There is a small ri ght pneumothorax. No pleural effusion. The heart size is normal. No pericardial effusion. There is a right internal jugular port with tip at superior cavoatrial junction. Abdomen/pelvis/proximal thighs: There are innumerable masses with increased activity in the liver wit h greatest confluence in the left hepatic lobe. The gallbladder, spleen, pancreas, and left adrenal g land are normal. There is a 1.6 cm mass in right adrenal gland measuring low-attenuation without incr eased activity, consistent with an adenoma. Right kidney is normal. There is severe atrophy of left k idney. There are scattered diverticula in the colon. There are no dilated loops of bowel. There is a moderate volume of ascites. There are no pathologically enlarged lymph nodes. There is no osseous mal ignancy. IMPRESSION: 1. 1.6 cm nodule in right lung upper lobe with increased activity, consistent with biopsy-proved squa mous cell carcinoma. 2. Innumerable liver masses with increased activity, consistent with biopsy-proved adenocarcinoma. 3. Moderate volume of ascites, worsened from 08/18/2019. Reviewed, dictated and finalized at location A. IMPRESSION: 1. 1.6 cm nodule in right lung upper lobe with increased activity, consistent w ith biopsy-proved squamous cell carcinoma. 2. Innumerable liver masses with increased activity, consistent with biopsy-pro neva adenocarcinoma. 3. Moderate volume of ascites, worsened from 08/18/2019.
[2019-10-03 13:54] LABS: Glucose Point of Care 99 (65-105)
== END 2019-10-03 13:35 | disposition home or self-care (01) ==
PROVIDERS: PCP Nurse Practitioner Family; Visit Provider Internal Medicine Hematology & Oncology
DX: C34.11 Malignant neoplasm of upper lobe, right bronchus or lung (principal); K76.89 Other specified diseases of liver
CPT/HCPCS: 78815; A9552

== ENCOUNTER 2019-10-09 10:59 | Outpatient (CLI) | payer MEDICARE, OTHER, SELFPAY ==
--- NOTE | ~2019-10-09 | US_ITS ---
EXAMINATION: US paracentesis abd w/image DATE: 10/09/2019 12:11 INDICATION: Ascites. TECHNIQUE: The procedure and its risks and benefits were discussed with the patient. Potential risks discussed included bleeding and infection. The skin was prepped and draped in sterile fashion. 1% lid ocaine was used for local anesthesia. Under ultrasound guidance, a 5 Fr catheter with trochar was adv anced into the ascites in the right lower quadrant. Fluid was aspirated into vacuum bottles. The cath eter was removed, and a dressing was applied. There were no immediate complications. FINDINGS: Ultrasound images demonstrate ascites and the catheter within the fluid. IMPRESSION: 1. Successful ultrasound-guided paracentesis yielding 1600 mL of clear yellow fluid. Reviewed, dictated and finalized at location A.
[2019-10-12 03:07] LABS: LDH Pleural Fluid 183 U/L
== END 2019-10-09 11:00 | disposition home or self-care (01) ==
LOC: ANHIMG 11:02
PROVIDERS: PCP Nurse Practitioner Family; Visit Provider Internal Medicine Hematology & Oncology
DX: R18.0 Malignant ascites (principal)
CPT/HCPCS: 49083; 83615; 87205

== ENCOUNTER 2019-11-06 09:17 | Outpatient (CLI) | payer MEDICARE, OTHER, SELFPAY ==
--- NOTE | ~2019-11-06 | US_ITS ---
EXAMINATION: US abdomen limited DATE: 11/06/2019 10:04 INDICATION: Malignant ascites TECHNIQUE/FINDINGS: Multiple grayscale and Doppler ultrasound images of the abdomen were obtained as a director information for planned paracentesis. Minimal ascites was present with largest pocket of fluid in the rig ht lower quadrant measuring approximately 7 x 5 cm. A 2 cm fluid pocket was visualized in the left lo wer quadrant on real-time imaging with no ascites in the left or right upper quadrants. Given the min imal amount of ascites the planned paracentesis was deferred. IMPRESSION: 1. Minimal ascites, unlikely to yield a therapeutic benefit from paracentesis which was deferred. Reviewed, dictated and finalized at location A. IMPRESSION: 1. Minimal ascites, unlikely to yield a therapeutic benefit from paracentesis w hich was deferred.
== END 2019-11-06 09:18 | disposition home or self-care (01) ==
PROVIDERS: PCP Nurse Practitioner Family; Visit Provider Internal Medicine Hematology & Oncology
DX: R18.0 Malignant ascites (principal); C34.11 Malignant neoplasm of upper lobe, right bronchus or lung
CPT/HCPCS: 76705

== ENCOUNTER 2019-12-12 13:17 | Outpatient (CLI) | payer MEDICARE, OTHER, SELFPAY ==
--- NOTE | ~2019-12-12 | US_ITS ---
EXAMINATION: US paracentesis abd w/image DATE: 12/12/2019 16:32 INDICATION: Ascites. TECHNIQUE: The procedure and its risks, benefits, and alternatives were discussed with the patient. P otential risks discussed included bleeding and infection. The skin was prepped and draped in sterile fashion. 1% lidocaine was used for local anesthesia. Under ultrasound guidance, a 5 Fr catheter with trochar was advanced into the ascites in the left lower quadrant. Fluid was aspirated. The catheter w as removed, and a dressing was applied. There were no immediate complications. FINDINGS: Ultrasound images demonstrate ascites and the catheter within the fluid. IMPRESSION: 1. Successful ultrasound-guided paracentesis yielding 4800 mL of yellow fluid. Reviewed, dictated and finalized at location A.
[2019-12-12 14:09] LABS: Basophils Percent Auto 0.1 % (0.2-1.2); Eosinophils Percent Auto 0.1 % (0-4.4); Hematocrit 33.9 % (37.0-47.0); Hemoglobin 10.9 g/dL (12.0-15.0); Immature Granulocyte Absolute 0.03 K/mm3 (0.00-0.031); Immature Granulocyte Percent A 0.3 % (0-0.5); Immature Platelet Fraction Pct 10.1 % (0.9-11.2); Lymphocytes Absolute Auto 0.15 K/mm3 (0.9-3.2); Lymphocytes Percent Auto 1.7 % (18.3-44.2); Mean Corpuscular HGB Conc 32.2 g/dl (32-36); Mean Corpuscular Hemoglobin 33.4 pg (26-34); Mean Platelet Volume 13.8 fl (7.4-10.4); Monocytes Absolute Auto 0.1 K/mm3 (0.1-0.6); Monocytes Percent Auto 1.2 % (2.6-8.5); Neutrophils Absolute Auto 8.5 K/mm3 (1.3-6.7); Neutrophils Percent Auto 96.6 % (45.5-73.1); Platelet Count Result 159 k/mm3 (150-375); Red Blood Count 3.26 M/mm3 (4.2-5.4); Red Cell Distribution Width 29.3 % (11.5-14.5); White Blood Count 8.8 K/mm3 (4.5-10.0)
[2019-12-12 14:21] LABS: INR 1.1; Prothrombin Time 14.1 Seconds (11.1-14.7)
== END 2019-12-12 13:18 | disposition home or self-care (01) ==
PROVIDERS: Radiology Diagnostic Radiology; PCP Nurse Practitioner Family; Visit Provider Internal Medicine Hematology & Oncology
DX: R18.0 Malignant ascites (principal)
CPT/HCPCS: 36415; 49083; 85025; 85055; 85610

== ENCOUNTER 2020-01-01 14:53 | Inpatient (IN) | payer MEDICARE, OTHER, SELFPAY ==
[2020-01-01] VITALS (10 sets, daily range): BP systolic 111–136; BP diastolic 47–57; PULSE 69–97; RESP 15–23; TEMP 36.3; O2SAT 94–100; BMI 26.9
--- NOTE | ~2020-01-01 | XR_ITS ---
EXAMINATION: XR knee RT min 4V, XR ankle RT min 3V, XR tibia fibula RT 2V DATE: 01/01/2020 18:21 INDICATION: Pain, swelling and erythema extending down the right lower leg TECHNIQUE: 1. Anteroposterior, 2 oblique and crosstable lateral views of the right knee were obtained 2. AP and lateral views of the right tibia and fibula. 3. AP, oblique, mortise and lateral views of the right ankle were obtained. COMPARISON: Right knee radiographs dated 07/02/2017 FINDINGS: Alignment is normal. No fracture. Is at least mild to moderate joint space narrowing in the medial c ompartment of the right knee although joint space during can be underestimated on nonweightbearing im aging. Remaining joint spaces appear relatively preserved. No cortical erosions or periosteal reactio n. Small Achilles and plantar calcaneal spurs. No right knee or ankle joint effusion. There is extens nasima soft tissue swelling with subcutaneous edema throughout the right lower leg from the mid right th igh through the visualized portions of the foot. No soft tissue gas or radiopaque foreign bodies. IMPRESSION: 1. Nonspecific soft tissue swelling with subcutaneous edema throughout the visualized right lower oviedo b. No right knee or ankle joint effusion or acute osseous abnormality. Line 2. Interval progression of now at least mild to moderate osteoarthritis at the medial compartment of the right knee. Reviewed, dictated and finalized at location A. IMPRESSION: 1. Nonspecific soft tissue swelling with subcutaneous edema throughout the visu alized right lower limb. No right knee or ankle joint effusion or acute osseous abnormality. Line 2. Interval progression of now at least mild to moderate osteoarthritis at the medial compartment of the right knee. IMPRESSION: 1. Nonspecific soft tissue swelling with subcutaneous edema throughout the visu alized right lower limb. No right knee or ankle joint effusion or acute osseous abnormality. Line 2. Interval progression of now at least mild to moderate osteoarthritis at the medial compartment of the right knee.
--- NOTE | ~2020-01-01 | US_ITS ---
EXAMINATION: US paracentesis abd w/image DATE: 01/03/2020 13:45 INDICATION: Ascites. TECHNIQUE: The procedure and its risks and benefits were discussed with the patient. Potential risks discussed included bleeding and infection. The skin was prepped and draped in sterile fashion. 1% lid ocaine was used for local anesthesia. Under ultrasound guidance, a 5 Fr catheter with trochar was adv anced into the ascites in the right lower quadrant. Fluid was aspirated into vacuum bottles. The cath eter was removed, and a dressing was applied. There were no immediate complications. FINDINGS: Ultrasound images demonstrate ascites and the catheter within the fluid. IMPRESSION: 1. Successful ultrasound-guided paracentesis yielding 5000 mL of clear yellow fluid. Reviewed, dictated and finalized at location A.
--- NOTE | ~2020-01-01 | US_ITS ---
EXAMINATION: US venous doppler LE RT DATE: 01/01/2020 17:42 INDICATION: Right lower limb edema and pain TECHNIQUE: Aguilar scale images without and with compression and Doppler images of the right lower extre mity veins were obtained. COMPARISON: None FINDINGS: The right common femoral vein, profunda femoral vein, femoral vein, popliteal vein, peronea l trunk, posterior tibial veins, and greater saphenous vein are patent. IMPRESSION: 1. Patent right lower extremity veins. No evidence of deep venous thrombosis. Reviewed, dictated and finalized at location A.
--- NOTE | ~2020-01-01 | US_ITS ---
EXAMINATION: US venous doppler [facility] EXAM DATE: 01/02/2020 11:41 INDICATION: Left leg edema. TECHNIQUE: Multiple grayscale, color flow and Doppler images of the left lower extremity deep venous system were obtained and reviewed. There is no prior study for comparison. FINDINGS: The left common femoral, femoral and profunda veins demonstrate normal color flow, respirat ory variation, augmentation and compressibility. Compressibility, color flow confirmed within the le ft popliteal, posterior tibial, peroneal, and greater saphenous veins. IMPRESSION: 1. No left lower extremity deep venous thrombosis. Reviewed, dictated and finalized at location B.
[2020-01-01 16:04] LABS: Hematocrit 32.7 % (37.0-47.0); Hemoglobin 10.5 g/dL (12.0-15.0); Immature Platelet Fraction Pct 10.3 % (0.9-11.2); Mean Corpuscular HGB Conc 32.1 g/dl (32-36); Mean Corpuscular Hemoglobin 36.6 pg (26-34); Mean Corpuscular Volume 113.9 fl (80-100); Mean Platelet Volume 14.4 fl (7.4-10.4); Platelet Count Result 142 k/mm3 (150-375); Red Blood Count 2.87 M/mm3 (4.2-5.4); White Blood Count 14.2 K/mm3 (4.5-10.0)
[2020-01-01 16:15] LABS: Alanine Aminotransferase 20 U/L (4-35); Albumin Level 2.7 g/dL (3.5-5.1); Alkaline Phosphatase 371 U/L (38-126); Anion Gap 14 mmol/L (8-16); Aspartate Amino Transferase 46 U/L (14-36); Calcium 9.1 mg/dL (8.4-10.2); Carbon Dioxide 21 mmol/L (22-30); Chloride 102 mmol/L (98-107); Estimated CRCL calculation 18 ml/min; Estimated Glomerular Filt Rate 18; Glucose 188 mg/dL (65-105); Lipase 151 U/L (23-300); Potassium 3.9 mmol/L (3.4-5.0); Sodium 137 mmol/L (137-145)
[2020-01-01 16:24] LABS: Band Neutrophils Percent 2 % (0-6); Eosinophils Absolute Manual 0.14 K/mm3 (0.02-0.5); Eosinophils Percent Manual 1 % (0-4); Lymphocytes Absolute Manual 0.42 K/mm3 (1.1-4.5); Monocytes Absolute Manual 0.99 K/mm3 (0.1-0.90); Monocytes Percent Manual 7 % (3-9); Neutrophils Absolute Manual 12.63 K/mm3 (1.7-7.2); Neutrophils Percent Manual 87 % (46-73); Total Cells Counted 100
[2020-01-01 16:25] LABS: Anisocytosis 3+ (NORMAL); Blood Urea Nitrogen 123 mg/dL (7-17)
--- NOTE | 2020-01-01 17:08 | ED.LOWEXIN ---
HPI - Extremity Injury (Lower) General Chief Complaint: Extremity Injury, Lower Stated Complaint: right leg pain and swelling Time Seen by Provider: 01/01/20 17:07 Source: patient and family Mode of arrival: ambulatory Limitations: no limitations History of Present Illness HPI Narrative: Patient is a 69-year-old female with a history of metastatic cholangiocarcinoma, lung cancer who follows with Dr. Mills, currently undergoing chemotherapy treatment, who presents for evaluation of right lower extremity swelling, redness. Patient family states that they noticed initial redness on Wednesday, patient apparently injured her knee after twisting it trying to exit a vehicle. No fall, no laceration or abrasions to the knee. Patient has since developed worsening redness, streaking up into her leg and now radiation of the pain into her lower leg, ankle area and into her right hip. Patient denies any fever or chills. Pain is dull, aching in nature and worsened with movement. No lesions, abscesses or drainage. No history of skin infections in the past per patient and daughter. Patient denies any numbness or weakness. Related Data Home Medications Medication Instructions Recorded Confirmed Healthy Eyes Lutein-Zeaxanthin 1 cap PO DAILY 08/22/19 12/12/19 Toujeo SoloStar U-300 Insulin 8 unit SUBCUT DAILY 08/22/19 12/12/19 atorvastatin 20 mg PO DAILY 08/22/19 12/12/19 bupropion HCl 150 mg PO DAILY 08/22/19 12/12/19 insulin lispro See Rx Instructions .ROUTE .COMPLEX 08/22/19 12/12/19 levalbuterol tartrate 2 puff INHALATION BID PRN 08/22/19 12/12/19 levothyroxine [Synthroid] 100 mcg PO DAILY 08/22/19 12/12/19 lisinopril 20 mg PO DAILY 08/22/19 12/12/19 prednisone 5 mg PO WEEKLY 08/22/19 12/12/19 Stool Softener 50 mg PO DAILY 08/31/19 12/12/19 famotidine [Pepcid] 20 mg PO DAILY 08/31/19 12/12/19 brimonidine 1 drp OPHTHALMIC (EYE) BID 09/19/19 12/12/19 potassium chloride 20 meq DAILY 11/02/19 12/12/19 loperamide [Imodium A-D] 2 mg PO Q4H PRN 11/07/19 12/12/19 bumetanide 2 mg PO BID 11/15/19 12/12/19 Allergies Allergy/AdvReac Type Severity Reaction Status Date / Time codeine AdvReac Intermediate NAUSEA Verified 01/01/20 16:59 oxycodone AdvReac Intermediate Dizziness, Verified 01/01/20 16:59 vomiting Contrast Media Allergy Intermediate HIVES Uncoded 10/12/19 10:49 Review of Systems Review of Systems: Narrative: CONSTITUTIONAL: Denies fever, chills ENT: Denies rhinorrhea, congestion CARDIOVASCULAR: Denies chest pain, palpitations, or edema. RESPIRATORY: Denies cough or dyspnea. GASTROINTESTINAL: Denies abdominal pain, nausea, vomiting GENITOURINARY: Denies dysuria or hematuria. SKIN: Denies rash or itching. MUSCULOSKELETAL: Denies back pain, reports right lower extremity swelling, pain, redness NEUROLOGIC: Denies headache, numbness, or weakness. [facility] Past Medical History Medical History Diabetes GERD (gastroesophageal reflux disease) Hyperlipidemia Hypertension Hypothyroid Liver carcinoma Lung cancer (~06/2019) Surgical History Surgical History Port-A-Cath in place Status post placement extracardiac conduit from RV to pulmonary artery Social History Social History Smoking packs per day: 0.5 Smoking cigarettes per day: 10.0 Years smoked: 40 Smoking pack-years: 20.00 Smoking status: Current every day smoker Tobacco type: cigarettes Additional smoking assessment comments: upto 3 packs a day in the past Alcohol intake: current Substance use: never Gender identity (if verbalized by the patient): Female Spiritual care concerns: No Exam Narrative: Exam Narrative: GENERAL: Awake, alert, conversant HEAD: Normocephalic, atraumatic. EYES: PERRLA and EOMI. ENT: Nares clear, no rhinorrhea or epistaxis. Mucous membranes moist. NECK: Supple. CHEST: No
[2020-01-01 17:49] LABS: Lactic Acid Reflex 1.7 mmol/L (0.7-2.1)
[2020-01-01 18:02] LABS: CRP 19.4 mg/dL (<1.0)
[2020-01-01 18:03] LABS: Erythrocyte Sedimentation Rate 109 mm/hr (0-20)
[2020-01-01] MEDS: ONDANSETRON INJ 4 MG/2 ML VIAL IV PUSH (18:47)
--- NOTE | 2020-01-01 19:00 | ADMGEN ---
This patient, Kathrin Payton, was admitted to Medical Room 340-01. Patient/family oriented to hospital policies and general routines including ID bracelet, bed and alarms, visiting hours, pain management, procedures, bathroom and other care routines, personal items, smoking policy, room service/diet, and visiting hours. Valuables list has been completed. Information on how to activate the Rapid Response Team has been discussed. Patient/Family are encouraged to report perceived risks to care and to ask questions if they do not understand what they are told or what they should do.
--- NOTE | 2020-01-01 22:00 | PM.IMHP ---
H&P: HPI History of Present Illness Date/Time: 01/01/20 22:00 Chief complaint: Right leg pain and swelling. Narrative: Kathrin Payton is an unfortunate 69-year-old female smoker diagnosed in July 2019 with synchronous primary cancers including non-small cell lung cancer arising the right upper lobe and presumed metastatic cholangiocarcinoma to the liver with chronic bronchitis, insulin-dependent diabetes, hypertension, hyperlipidemia, hypothyroidism, chronic kidney disease, anemia, and GERD who presented to the emergency department earlier today with complaints of right leg pain and swelling. She began noticing edema in her lower legs over the past 1 to 2 months and has been taking diuretics with perhaps some benefit and she is now taking 2 mg of bumetanide b.i.d. Several days ago she noticed mild erythema of the right leg which she attributed to perhaps twisting her knee wrong while getting out of a vehicle however she sustained no injuries, lacerations, or abrasions at that time. The erythema has begun to spread in size with lymphangitic streaking and over the last 2 days she has had a burning pain in the right lower leg, worse with palpation and weight-bearing. She has also had a poor appetite and tells me food just has not sounded appealing since starting chemotherapy. She has occasional nausea but she denies vomiting and diarrhea. She has not had fever, chills, or sweats. No history of venous thromboembolism. Review of Systems Review of Systems: Narrative: Twelve systems were reviewed with pertinent positives and negatives as per HPI. She denies recent cold and flu symptoms. No recent travel or sick contacts. She denies chest pain, pleuritic pain, palpitations, cough, and shortness of breath. It sounds as though she has chronic dyspnea on exertion due to her chronic bronchitis for which she uses inhalers daily. No dysuria. Last chemo treatment was approximately 2 weeks ago. She has had problems with anemia and thrombocytopenia and has had to miss several doses of chemotherapy due to such. Except as documented, all other systems were reviewed and are negative. [facility] Past Medical History Medical History (Updated 01/01/20 @ 23:43 by Aysha King PA-C) Cholangiocarcinoma (~07/2019) Metastatic to the liver. Currently receiving chemotherapy per Dr. Mills. Chronic anemia Chronic bronchitis Chronic kidney disease, stage 3 Gastroesophageal reflux disease Hyperlipidemia Hypertension Hypothyroidism Insulin dependent diabetes mellitus Non-small cell lung cancer (~07/2019) Right upper lobe squamous cell carcinoma. Status post radiation. Tobacco abuse Surgical History Surgical History (Updated 01/01/20 @ 23:38 by Aysha King PA-C) History of hysterectomy Port-A-Cath in place Family History Family History Father Colon cancer Cirrhosis AA (alcohol abuse) Mother Brain cancer Lung cancer Sibling Throat cancer Tongue cancer Lung cancer Skin cancer Daughter Cervical cancer Social History Social History (Updated 01/01/20 @ 23:40 by Aysha King PA-C) Social History: Surrogate decision maker: Meliton Payton (son) and Loraine Chamorro (daughter). Code status: Do not resuscitate. Smoking packs per day: 3 Smoking cigarettes per day: 60.0 Years smoked: 40 Smoking pack-years: 120.00 Smoking status: Current every day smoker Tobacco type: cigarettes Additional smoking assessment comments: Smoked up to 3 packs of cigarettes per day, now less than a pack a day. Alcohol intake: former Substance use: never Additional living arrangements comments: Lives in her own home in [place]. She has 2 children, a son and a daughter. 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 Gender identity (if verbalized by the patient): Female Spiritual care concerns: No Meds Home Medications and Aller
[2020-01-02] MEDS: SODIUM CHLORIDE 0.9% IV 1,000 ML 100 ML IV CONT (00:32)
[2020-01-02] MEDS: LEVALBUTEROL HFA (*SP) 15 GM INHALER 2 PUFF INHALATION (01:38)
[2020-01-02 01:40] VITALS: PULSE 94; RESP 20
[2020-01-02 03:23] LABS: Glucose Point of Care 194 (65-105)
[2020-01-02 05:08] VITALS: BP 129/62; PULSE 104; RESP 16; TEMP 36.2; O2SAT 95
[2020-01-02] MEDS: LEVOTHYROXINE SODIUM 100 MCG TABLET PO (05:31)
[2020-01-02] MEDS: MORPHINE SULFATE (*CRX) 4 MG/ML INJ IV PUSH ×2 (05:35→22:23)
[2020-01-02 05:57] LABS: Basophils Percent Auto 0.1 % (0.2-1.2); Eosinophils Absolute Auto 0.1 K/mm3 (0-0.3); Eosinophils Percent Auto 0.4 % (0-4.4); Hematocrit 31.5 % (37.0-47.0); Immature Granulocyte Absolute 0.07 K/mm3 (0.00-0.031); Immature Granulocyte Percent A 0.5 % (0-0.5); Immature Platelet Fraction Pct 10.4 % (0.9-11.2); Lymphocytes Absolute Auto 0.55 K/mm3 (0.9-3.2); Lymphocytes Percent Auto 4.1 % (18.3-44.2); Mean Corpuscular HGB Conc 31.7 g/dl (32-36); Mean Corpuscular Hemoglobin 36.1 pg (26-34); Mean Corpuscular Volume 113.7 fl (80-100); Monocytes Absolute Auto 1.2 K/mm3 (0.1-0.6); Neutrophils Absolute Auto 11.6 K/mm3 (1.3-6.7); Neutrophils Percent Auto 85.9 % (45.5-73.1); Platelet Count Result 141 k/mm3 (150-375); Red Blood Count 2.77 M/mm3 (4.2-5.4); White Blood Count 13.5 K/mm3 (4.5-10.0)
[2020-01-02 06:03] LABS: INR 1.3
[2020-01-02 06:04] LABS: Partial Thromboplastin Time 39.2 SECONDS (22.3-36.8)
[2020-01-02 06:14] LABS: Magnesium 1.9 mg/dL (1.6-2.3); Phosphorus 4.5 mg/dL (2.5-4.5)
[2020-01-02 07:47] LABS: Glucose Point of Care 205 (65-105)
[2020-01-02 07:47] LABS: Free T4 Free Thyroxine Reflex 1.75 ng/dL (0.78-2.19)
[2020-01-02] MEDS: INSULIN ASPART (*BKC) 100 UNITS/ML SUB-Q ×3 (07:49→16:44)
[2020-01-02] MEDS: BRIMONIDINE TARTRATE 0.2% OP SOLN 5 ML BTL 1 DROP EACH EYE ×2 (08:36→16:13)
[2020-01-02] MEDS: FAMOTIDINE 20 MG TABLET PO (08:36)
[2020-01-02 09:57] LABS: Total Triiodothyronine (T3) 0.62 NG/ML (0.97-1.69)
--- NOTE | 2020-01-02 11:35 | PHAR ---
HOME MED VERIFIED TOUJEO SOLOSTAR 300U/ML 18UNITS DAILY
[2020-01-02 11:45] LABS: Glucose Point of Care 232 (65-105)
--- NOTE | 2020-01-02 12:19 | PM.IMPN ---
Progress Note: A&P Assessment and Plan (1) Cellulitis of right leg: Code(s): L03.115 - Cellulitis of right lower limb Status: Acute Assessment and Plan: Pt is being treated with IV vancomycin, pt has CKD i will change her IV ABX regime (2) Acute on chronic kidney failure: Code(s): N17.9 - Acute kidney failure, unspecified; N18.9 - Chronic kidney disease, unspecified Status: Acute Assessment and Plan: Creat is 2.6 continue to watch (3) Chronic anemia: Code(s): D64.9 - Anemia, unspecified Status: Acute Assessment and Plan: H b is 10 (4) Insulin dependent diabetes mellitus: Status: Chronic Assessment and Plan: Glucose is 188, SSI, accuchecks (5) 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 bile duct carcinoma Status: Chronic Assessment and Plan: Chronic under treatment (6) Non-small cell lung cancer: Onset Date: ~07/2019 Code(s): C34.90 - Malignant neoplasm of unspecified part of unspecified bronchus or lung Status: Chronic Assessment and Plan: Pt is under treatment (7) Hypothyroidism: Code(s): E03.9 - Hypothyroidism, unspecified Status: Acute Assessment and Plan: ON levothyroxine (8) Hypertension: Code(s): I10 - Essential (primary) hypertension Status: Acute Assessment and Plan: Continue to watch BP (9) Gastroesophageal reflux disease: Code(s): K21.9 - Gastro-esophageal reflux disease without esophagitis Status: Acute (10) Lower extremity edema: Code(s): R60.0 - Localized edema Status: Acute Assessment and Plan: Right lower extremity Doppler was negative for DVT and left lower ext was negative. Pt being treated for cellulitis. 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 Venous doppler of LEFT leg was negative for clots. AND right lower extremity Doppler was negative for DVT Review of Systems Review of Systems: All systems reviewed & are unremarkable except as noted in HPI and below Constitutional: Constitutional: Reports fatigue and Reports weakness Cardiovascular: Cardiovascular: Denies no additional cardiovascular complaints Respiratory: Respiratory: Denies cough and Denies dyspnea Gastrointestinal: Gastrointestinal: Reports constipation Comments: Abdominal swelling Genitourinary: Genitourinary: Denies no additional female genitourinary complaints Musculoskeletal: Musculoskeletal: Reports neck pain Comments: Redness and swelling of right leg up to knee Neurologic: Denies system reviewed and no additional complaints, except as documented Psychiatric: Psychiatric: Denies no additional psychiatric complaints Exam Const: General: cooperative and healthy appearing; No in distress Nutritional Appearance: overweight Orientation/consciousness: oriented to person Other: Chronically ill appearing HENMT: Head: normal to inspection Resp: Effort & Inspection: no respiratory distress Auscultation: no rhonchi and no wheezes Cardio: Rate: regular rate Rhythm: regular rhythm GI: Inspection: normal to inspection GI Palp: No abdominal tenderness, No Guarding d
[2020-01-02 12:53] VITALS: BMI 27.6
[2020-01-02 14:00] VITALS: BP 114/56; PULSE 85; RESP 16; TEMP 36.6; O2SAT 100
[2020-01-02] MEDS: ceFAZolin 500 MG in DEXTROSE 5% IN WATER 50 ML 100 MG IVPB ×2 (14:06→20:00)
[2020-01-02] MEDS: EUCERIN CREAM 120 GM JAR 1 APPLIC TOPICAL (16:13)
[2020-01-02 16:42] LABS: Glucose Point of Care 209 (65-105)
--- NOTE | 2020-01-02 17:09 | PDONCCN ---
HPI - Date of Consult Date/Time: 01/02/20 17:09 Requesting Physician: Dario Callahan MD Primary Care Provider: Winsome Garcia, LEAD [employer] DEVELOPER-BC - Consult Narrative Reason for consult: Metastatic cholangiocarcinoma Narrative: Kathrin Payton is a 69 year old female This is a pleasant 69-year-old female was diagnosed with metastatic cholangiocarcinoma status post liver biopsy on September 04, 2019. She was also diagnosed with squamous cell carcinoma of the lung status post CT-guided biopsy of the lung done on September 20, 2019. She has completed SBRT treatment to the lung mass on November 14, 2019. She is currently on palliative chemotherapy with Gemzar for cholangiocarcinoma. Her last chemotherapy treatment was on November 15, 2019. Patient now came into the hospital with left lower extremity cellulitis with inflammation redness and edema. She has bilateral lower extremity edema. She just came back from [facility] to see her brother. She denies any chest pain but does have shortness of breath. She feels quite tired and fatigued. She has apparently lost some weight as well. She denies any bleeding and bruising. He denies any fevers and chills. She also complaining of abdominal distention. She had paracentesis done almost 3 weeks ago. Review of Systems - Review of Systems All systems reviewed & are unremarkable except as noted in HPI and bel - Neurologic Reports weakness, Denies system reviewed and no additional complaints, except as documented PMF Medical History: Medical History (Last Updated 01/01/20 @ 23:41 by Aysha King PA-C) Cholangiocarcinoma Onset Date: ~07/2019 Metastatic to the liver. Currently receiving chemotherapy per Dr. Mills. Chronic anemia Chronic bronchitis Chronic kidney disease, stage 3 Gastroesophageal reflux disease Hyperlipidemia Hypertension Hypothyroidism Insulin dependent diabetes mellitus Non-small cell lung cancer Onset Date: ~07/2019 Right upper lobe squamous cell carcinoma. Status post radiation. Tobacco abuse Surgical History: Surgical History (Last Updated 01/01/20 @ 23:38 by Aysha King PA-C) History of hysterectomy Port-A-Cath in place Family History: Family History (Last Reviewed 01/01/20 @ 22:03 by Aysha King PA-C) Father Colon cancer Cirrhosis AA (alcohol abuse) Mother Brain cancer Lung cancer Sibling Throat cancer Tongue cancer Lung cancer Skin cancer Daughter Cervical cancer - Social History Social History: Social History (Last Updated 01/01/20 @ 23:40 by Aysha King PA-C) Gender Identity: Gender identity (if verbalized by the patient): Female Alcohol Use: Alcohol intake: former Substance Use: Substance use: never Others: Spiritual care concerns: No Smoking Status: Smoking status: Current every day smoker Tobacco type: cigarettes Smoking Pack-years: Smoking packs per day: 3 Smoking cigarettes per day: 60.0 Years smoked: 40 Smoking pack-years: 120.00 Comments: Additional smoking assessment comments: Smoked up to 3 packs of cigarettes per day, now less than a pack a day. Meds Home Medications Medication Instructions Recorded Confirmed Type Healthy Eyes Lutein-Zeaxanthin 1 cap PO DAILY 08/22/19 01/01/20 History Toujeo SoloStar U-300 Insulin 18 unit SUBCUT DAILY 08/22/19 01/01/20 History atorvastatin 20 mg PO DAILY 08/22/19 01/01/20 History bupropion HCl 150 mg PO DAILY 08/22/19 01/01/20 History insulin lispro See Rx Instructions .ROUTE .COMPLEX 08/22/19 01/01/20 History levalbuterol tartrate 2 puff INHALATION BID PRN 08/22/19 01/01/20 History levothyroxine [Synthroid] 100 mcg PO DAILY 08/22/19 01/01/20 History lisinopril 20 mg PO DAILY 08/22/19 01/01/20 History famotidine [Pepcid] 20 mg PO DAILY 08/31/19 01/01/20 History brimonidine 1 drp OPHTHALMIC (EYE) BID 09/19/19 01/01/20 History potassium chloride 20 meq PO H[place]IGH
[2020-01-02 21:01] VITALS: BP 124/56; PULSE 90; RESP 20; TEMP 36.9; O2SAT 97
[2020-01-02 21:18] LABS: Glucose Point of Care 248 (65-105)
[2020-01-03 05:32] VITALS: BP 139/60; PULSE 99; RESP 18; TEMP 36.8; O2SAT 95
[2020-01-03] MEDS: LEVOTHYROXINE SODIUM 100 MCG TABLET PO (05:52)
[2020-01-03] MEDS: ONDANSETRON INJ 4 MG/2 ML VIAL IV PUSH ×2 (05:57→14:03)
[2020-01-03] MEDS: LEVALBUTEROL HFA (*SP) 15 GM INHALER 2 PUFF INHALATION (06:47)
[2020-01-03 07:43] LABS: Glucose Point of Care 154 (65-105)
[2020-01-03] MEDS: BRIMONIDINE TARTRATE 0.2% OP SOLN 5 ML BTL 1 DROP EACH EYE ×2 (08:14→16:35)
[2020-01-03] MEDS: EUCERIN CREAM 120 GM JAR 1 APPLIC TOPICAL (08:14)
[2020-01-03] MEDS: ceFAZolin 500 MG in DEXTROSE 5% IN WATER 50 ML 100 MG IVPB ×2 (08:18→21:35)
--- NOTE | 2020-01-03 11:15 | PM.IMPN ---
Progress Note: A&P Assessment and Plan (1) Cellulitis of right leg: Code(s): L03.115 - Cellulitis of right lower limb Status: Acute Assessment and Plan: Pt treated with iv ancef redness improving. (2) Acute on chronic kidney failure: Code(s): N17.9 - Acute kidney failure, unspecified; N18.9 - Chronic kidney disease, unspecified Status: Acute Assessment and Plan: Creat is 2.6 continue to watch (3) Chronic anemia: Code(s): D64.9 - Anemia, unspecified Status: Acute Assessment and Plan: H b is 10 (4) Insulin dependent diabetes mellitus: Status: Chronic Assessment and Plan: SSI, accuchecks (5) 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 bile duct carcinoma Status: Chronic Assessment and Plan: Chronic under treatment paracentesis today for ascites. (6) Non-small cell lung cancer: Onset Date: ~07/2019 Code(s): C34.90 - Malignant neoplasm of unspecified part of unspecified bronchus or lung Status: Chronic Assessment and Plan: Pt is under treatment (7) Hypothyroidism: Code(s): E03.9 - Hypothyroidism, unspecified Status: Acute Assessment and Plan: ON levothyroxine (8) Hypertension: Code(s): I10 - Essential (primary) hypertension Status: Acute Assessment and Plan: Continue to watch BP (9) Gastroesophageal reflux disease: Code(s): K21.9 - Gastro-esophageal reflux disease without esophagitis Status: Acute (10) Lower extremity edema: Code(s): R60.0 - Localized edema Status: Acute Assessment and Plan: Right lower extremity Doppler was negative for DVT and left lower ext was negative. Pt being treated for cellulitis. (11) Tobacco abuse: Code(s): Z72.0 - Tobacco use Status: Acute Assessment and Plan: Adviced to quit (12) Chronic bronchitis: Code(s): J42 - Unspecified chronic bronchitis Status: Chronic Assessment and Plan: Chronic and stable Additional Plan e. Subjective Date/time seen: 01/03/20 11:15 Interval history: Fito is an unfortunate 69-year-old female smoker diagnosed in July 2019 with synchronous primary cancers including non-small cell lung cancer arising the right upper lobe and presumed metastatic cholangiocarcinoma to the liver with chronic bronchitis, insulin-dependent diabetes, hypertension, hyperlipidemia, hypothyroidism, chronic kidney disease, anemia, and GERD who presented to the emergency department earlier today with complaints of right leg pain and swelling. Venous doppler of LEFT leg was negative for clots. AND right lower extremity Doppler was negative for DVT. Pt leg in improving with IV abx treatment. Pt is going to paracentesis tomorrow, hopeful discharge tomorrow. Review of Systems Review of Systems: All systems reviewed & are unremarkable except as noted in HPI and below Constitutional: Constitutional: Reports fatigue and Reports weakness Cardiovascular: Cardiovascular: Denies no additional cardiovascular complaints and Denies dyspnea Respiratory: Respiratory: Denies cough and Denies dyspnea Gastrointestinal: Gastrointestinal: Reports bloating and Reports constipation Neurologic: Reports weakness Psychiatric: Psychiatric: Denies no additional psychiatric complaints Endocrine: Endocrine: Reports fatigue Exam Const: General: cooperative and healthy appearing; No in distress Nutritional Appearance: overweight Orientation/consciousness: oriented to person Other: Chronically ill appearing HENMT: Head: normal to inspection Resp: Effort & Inspection: no respiratory distress Auscultation: no rhonchi and no wheezes Cardio: Rate: regular rate Rhythm: regular rhythm GI: Inspection: normal to inspection Auscultation: normal bowel sounds Other: Abdominal distended Neuro: General: oriented to person Extrem: Other: R leg red and swolle
[2020-01-03 11:39] LABS: Glucose Point of Care 154 (65-105)
[2020-01-03 11:59] LABS: INR 1.3; Prothrombin Time 15.5 Seconds (11.1-14.7)
[2020-01-03 14:00] VITALS: BP 108/60; PULSE 93; RESP 18; TEMP 36.3; O2SAT 99
[2020-01-03] MEDS: terbinafine HCL 250 MG TABLET PO (14:02)
[2020-01-03] MEDS: FAMOTIDINE 20 MG TABLET PO (14:02)
[2020-01-03 14:21] LABS: Glucose Point of Care 142 (65-105)
[2020-01-03 16:30] LABS: Glucose Point of Care 176 (65-105)
--- NOTE | 2020-01-03 16:41 | WPDONCPN ---
Progress Note: A/P - Additional Plan Right lower extremity cellulitis. Patient is on antibiotic therapy with slight improvement. Continue Bumex. Malignant ascites. Patient is going to have paracentesis done today. Metastatic cholangiocarcinoma. Plan to resume chemotherapy as an outpatient. - Time Spent With Patient Total time spent is greater than 50% in coordination of care (as documented) at patient's floor/unit and/or counseling patient: 15 - 25 minutes Subjective Interval history: Metastatic cholangiocarcinoma Right lower extremity cellulitis Review of Systems - Review of Systems Patient denies any fevers and chills. She looks quite comfortable. Still have significant redness and erythema in the right lower extremity with edema. He is experiencing some nausea and bloating. This is likely secondary to abdominal distention from ascites. Patient is waiting to go for paracentesis today. - Neurologic Reports weakness, Denies system reviewed and no additional complaints, except as documented Exam Vital signs: Temp Pulse Resp BP Pulse Ox 36.3 C L 93 18 108/60 99 01/03/20 14:00 01/03/20 14:00 01/03/20 14:00 01/03/20 14:00 01/03/20 14:00 Narrative: Lungs are clear to auscultation bilaterally Cardiovascular regular rate rhythm no murmurs Abdomen distended with ascites bowel sounds are decreased Extremities bilateral pitting edema with cellulitis involving the right lower extremity PN: Objective Data - Labs CBC & Chem 7: 01/02/20 05:11 01/01/20 15:31 Labs: Laboratory Results - last 24 hr 01/02/20 01/02/20 01/03/20 16:19 19:59 07:34 PT INR POC Capillary Glucose 209 H 248 H 154 H 01/03/20 01/03/20 01/03/20 11:33 11:37 14:00 PT 15.5 H INR 1.3 POC Capillary Glucose 154 H 142 H 01/03/20 16:28 PT INR POC Capillary Glucose 176 H
[2020-01-03 20:35] VITALS: BP 104/50; PULSE 86; RESP 16; TEMP 36.1; O2SAT 100
[2020-01-03 20:44] LABS: Glucose Point of Care 258 (65-105)
[2020-01-03 21:32] VITALS: BP 109/58
[2020-01-03] MEDS: MORPHINE SULFATE (*CRX) 4 MG/ML INJ IV PUSH (21:34)
[2020-01-04 04:15] VITALS: BP 113/53; PULSE 94; RESP 16; TEMP 36.4; O2SAT 98
[2020-01-04] MEDS: ONDANSETRON INJ 4 MG/2 ML VIAL IV PUSH ×3 (04:15→16:03)
[2020-01-04] MEDS: LEVOTHYROXINE SODIUM 100 MCG TABLET PO (05:33)
[2020-01-04 06:15] LABS: Hematocrit 31.5 % (37.0-47.0); Immature Platelet Fraction Pct 11.4 % (0.9-11.2); Mean Corpuscular HGB Conc 31.7 g/dl (32-36); Mean Corpuscular Hemoglobin 36.1 pg (26-34); Mean Corpuscular Volume 113.7 fl (80-100); Mean Platelet Volume 14.4 fl (7.4-10.4); Platelet Count Result 111 k/mm3 (150-375); Red Blood Count 2.77 M/mm3 (4.2-5.4); White Blood Count 9.3 K/mm3 (4.5-10.0)
[2020-01-04 07:47] LABS: Glucose Point of Care 132 (65-105)
[2020-01-04] MEDS: ceFAZolin 500 MG in DEXTROSE 5% IN WATER 50 ML 100 MG IVPB ×2 (08:06→21:09)
[2020-01-04] MEDS: terbinafine HCL 250 MG TABLET PO (08:07)
[2020-01-04] MEDS: FAMOTIDINE 20 MG TABLET PO (08:07)
[2020-01-04] MEDS: BRIMONIDINE TARTRATE 0.2% OP SOLN 5 ML BTL 1 DROP EACH EYE ×2 (08:08→16:00)
[2020-01-04] MEDS: EUCERIN CREAM 120 GM JAR 1 APPLIC TOPICAL (08:08)
[2020-01-04 10:33] LABS: Anion Gap 11 mmol/L (8-16); Blood Urea Nitrogen 112 mg/dL (7-17); Calcium 8.5 mg/dL (8.4-10.2); Carbon Dioxide 23 mmol/L (22-30); Chloride 103 mmol/L (98-107); Estimated CRCL calculation 22 ml/min; Estimated Glomerular Filt Rate 26; Glucose 129 mg/dL (65-105); Potassium 3.8 mmol/L (3.4-5.0); Sodium 137 mmol/L (137-145)
[2020-01-04 11:32] LABS: Glucose Point of Care 158 (65-105)
--- NOTE | 2020-01-04 13:14 | PM.IMPN ---
Progress Note: A&P Assessment and Plan (1) Cellulitis of right leg: Code(s): L03.115 - Cellulitis of right lower limb Status: Acute Assessment and Plan: Pt treated with iv ancef redness improving. Wcc is Nl, BC negative to date. (2) Acute on chronic kidney failure: Code(s): N17.9 - Acute kidney failure, unspecified; N18.9 - Chronic kidney disease, unspecified Status: Acute Assessment and Plan: Creat is 1.9, continue to watch periodically (3) Chronic anemia: Code(s): D64.9 - Anemia, unspecified Status: Acute Assessment and Plan: Hb is 10 (4) Insulin dependent diabetes mellitus: Status: Chronic Assessment and Plan: SSI, accuchecks, glucose is 129 (5) 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 bile duct carcinoma Status: Chronic Assessment and Plan: Chronic under treatment pt had paracentesis yesterday for ascites. pt had 5 liters taken off Pt seen by Dr VIVEROS (6) Non-small cell lung cancer: Onset Date: ~07/2019 Code(s): C34.90 - Malignant neoplasm of unspecified part of unspecified bronchus or lung Status: Chronic Assessment and Plan: Pt is under treatment (7) Hypothyroidism: Code(s): E03.9 - Hypothyroidism, unspecified Status: Acute Assessment and Plan: ON levothyroxine (8) Hypertension: Code(s): I10 - Essential (primary) hypertension Status: Acute Assessment and Plan: Continue to watch BP (9) Gastroesophageal reflux disease: Code(s): K21.9 - Gastro-esophageal reflux disease without esophagitis Status: Acute (10) Lower extremity edema: Code(s): R60.0 - Localized edema Status: Acute Assessment and Plan: Right lower extremity Doppler was negative for DVT and left lower ext was negative. Pt being treated for cellulitis. (11) Tobacco abuse: Code(s): Z72.0 - Tobacco use Status: Acute Assessment and Plan: Adviced to quit (12) Chronic bronchitis: Code(s): J42 - Unspecified chronic bronchitis Status: Chronic Assessment and Plan: Chronic and stable Subjective Date/time seen: 01/04/20 13:14 Interval history: Fito is an unfortunate 69-year-old female smoker diagnosed in July 2019 with synchronous primary cancers including non-small cell lung cancer arising the right upper lobe and presumed metastatic cholangiocarcinoma to the liver with chronic bronchitis, insulin-dependent diabetes, hypertension, hyperlipidemia, hypothyroidism, chronic kidney disease, anemia, and GERD who presented to the emergency department earlier today with complaints of right leg pain and swelling. Venous doppler of LEFT leg was negative for clots. AND right lower extremity Doppler was negative for DVT. Pt leg in improving with IV abx treatment. Pt had 5 liters drained from paracentesis yesterday. Pts legs look very swollen today. Pt has alot of nausea and vomited bile today Review of Systems Review of Systems: All systems reviewed & are unremarkable except as noted in HPI and below Musculoskeletal: Comments: R leg redness, swollen ankles 3+ Exam Const: General: cooperative and healthy appearing; No in distress Nutritional Appearance: overweight Orientation/consciousness: oriented to person Other: Chronically ill appearing HENMT: Head: normal to inspection Resp: Effort & Inspection: no respiratory distress Auscultation: no rhonchi and no wheezes Cardio: Rate: regular rate Rhythm: regular rhythm GI: Inspection: normal to inspection Auscultation: normal bowel sounds Other: Abdominal slightly distended Neuro: General: oriented to person Extrem: Other: R leg red and swollen indurated in calf up to mid milladr improving both feet with fungal infection between toes and on toe nails Ankles 3+ pitting edema Objective Data Vital Signs Vital Signs: Vital Signs - 24 hr 01/03/20 14:00
[2020-01-04 14:00] VITALS: BP 105/54; PULSE 65; RESP 18; TEMP 36.2; O2SAT 100
[2020-01-04] MEDS: ALBUMIN HUMAN 25% 25 GM/100 ML 100 ML IVPB (15:55)
[2020-01-04] MEDS: BUMETANIDE 1 MG TABLET 2 MG PO (16:00)
[2020-01-04 19:42] VITALS: BP 106/46; PULSE 90; RESP 16; TEMP 36.8; O2SAT 100
[2020-01-04 20:29] LABS: Glucose Point of Care 197 (65-105)
[2020-01-04 22:04] LABS: Glucose Point of Care 259 (65-105)
[2020-01-04] MEDS: MORPHINE SULFATE (*CRX) 4 MG/ML INJ IV PUSH (22:18)
[2020-01-05 04:13] VITALS: BP 103/45; PULSE 82; RESP 16; TEMP 36.3; O2SAT 96
[2020-01-05] MEDS: ONDANSETRON INJ 4 MG/2 ML VIAL IV PUSH ×2 (04:34→11:40)
[2020-01-05] MEDS: LEVOTHYROXINE SODIUM 100 MCG TABLET PO (05:50)
[2020-01-05 06:51] LABS: Anion Gap 10 mmol/L (8-16); Blood Urea Nitrogen 102 mg/dL (7-17); Calcium 8.6 mg/dL (8.4-10.2); Carbon Dioxide 24 mmol/L (22-30); Chloride 104 mmol/L (98-107); Estimated CRCL calculation 22 ml/min; Estimated Glomerular Filt Rate 26; Glucose 133 mg/dL (65-105); Potassium 3.8 mmol/L (3.4-5.0); Sodium 138 mmol/L (137-145)
[2020-01-05 07:58] LABS: Glucose Point of Care 186 (65-105)
[2020-01-05 08:00] VITALS: PULSE 82; RESP 16; O2SAT 96
[2020-01-05] MEDS: ceFAZolin 500 MG in DEXTROSE 5% IN WATER 50 ML 100 MG IVPB ×2 (09:14→20:10)
[2020-01-05] MEDS: BRIMONIDINE TARTRATE 0.2% OP SOLN 5 ML BTL 1 DROP EACH EYE ×2 (09:23→17:01)
[2020-01-05] MEDS: EUCERIN CREAM 120 GM JAR 1 APPLIC TOPICAL (09:23)
[2020-01-05] MEDS: terbinafine HCL 250 MG TABLET PO (09:23)
[2020-01-05] MEDS: BUMETANIDE 1 MG TABLET 2 MG PO ×2 (09:23→17:01)
[2020-01-05] MEDS: FAMOTIDINE 20 MG TABLET PO (09:24)
[2020-01-05 11:56] LABS: Glucose Point of Care 174 (65-105)
--- NOTE | 2020-01-05 15:57 | PCDIET ---
Nutrition Follow-Up Complete: Inadequate oral intake r/t reduced appetite as evidence by po intake of 20% and 92% of UBW PO intake of 50% of meals to aid in wt maintenance Goal: Progressing towards goal. Continue goal. Pt current nutrition is DB. Nutrition recommendation: agree Last recorded weight is 67.3 kg (down from 70.8kg on assessment) Bowel Motility: 12/31 (recommend magnesium to move bowels) Labs Reviewed: glucose 174 Meds Noted: Wellbutrin, zofran, synthroid Additional Notes: Pt on DB diet which is appropriate. Eating 42% average over 5 meals. Pt c/o of decreased appetite. Wellbutrin can have this anorexic affect in conjunction with cancer treatment wt loss. May benefit from alternative med. Pt does protein shakes, bars at home. Family encouraged to bring in as pt does not like ensure. We will continue to follow for adequate intake and wt every five days.
[2020-01-05 16:17] VITALS: BP 128/62; PULSE 78; RESP 16; TEMP 36.6; O2SAT 100
[2020-01-05 16:51] LABS: Glucose Point of Care 257 (65-105)
[2020-01-05] MEDS: INSULIN ASPART (*BKC) 100 UNITS/ML SUB-Q (16:55)
--- NOTE | 2020-01-05 17:04 | PM.IMPN ---
Progress Note: A&P Assessment and Plan (1) Cellulitis of right leg: Code(s): L03.115 - Cellulitis of right lower limb Status: Acute Assessment and Plan: Pt treated with iv ancef redness improving. Wcc is Nl, BC negative to date. (2) Acute on chronic kidney failure: Code(s): N17.9 - Acute kidney failure, unspecified; N18.9 - Chronic kidney disease, unspecified Status: Acute Assessment and Plan: Creat is 1.9, continue to watch periodically (3) Chronic anemia: Code(s): D64.9 - Anemia, unspecified Status: Acute Assessment and Plan: Hb is 10 (4) Insulin dependent diabetes mellitus: Status: Chronic Assessment and Plan: SSI, accuchecks, glucose is 129 (5) 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 bile duct carcinoma Status: Chronic Assessment and Plan: Chronic under treatment pt had paracentesis for ascites. pt had 5 liters taken off Pt seen by Dr MILLS (6) Non-small cell lung cancer: Onset Date: ~07/2019 Code(s): C34.90 - Malignant neoplasm of unspecified part of unspecified bronchus or lung Status: Chronic Assessment and Plan: Pt is under treatment (7) Hypothyroidism: Code(s): E03.9 - Hypothyroidism, unspecified Status: Acute Assessment and Plan: ON levothyroxine (8) Hypertension: Code(s): I10 - Essential (primary) hypertension Status: Acute Assessment and Plan: Continue to watch BP (9) Gastroesophageal reflux disease: Code(s): K21.9 - Gastro-esophageal reflux disease without esophagitis Status: Acute (10) Lower extremity edema: Code(s): R60.0 - Localized edema Status: Acute Assessment and Plan: Right lower extremity Doppler was negative for DVT and left lower ext was negative. Pt being treated for cellulitis. EDEMA try bumex orally and albumin infusions (11) Tobacco abuse: Code(s): Z72.0 - Tobacco use Status: Acute Assessment and Plan: Adviced to quit (12) Chronic bronchitis: Code(s): J42 - Unspecified chronic bronchitis Status: Chronic Assessment and Plan: Chronic and stable Subjective Date/time seen: 01/05/20 17:04 Interval history: Fito is an unfortunate 69-year-old female smoker diagnosed in July 2019 with synchronous primary cancers including non-small cell lung cancer arising the right upper lobe and presumed metastatic cholangiocarcinoma to the liver with chronic bronchitis, insulin-dependent diabetes, hypertension, hyperlipidemia, hypothyroidism, chronic kidney disease, anemia, and GERD who presented to the emergency department earlier today with complaints of right leg pain and swelling. Venous doppler of LEFT leg was negative for clots and right lower extremity Doppler was negative for DVT. Pt leg in improving with IV abx treatment. Pt had 5 liters drained from paracentesis few days ago. Pts legs look very swollen today. Swollen up to belly again. Pt has alot of nausea and vomited bile today, Discussed case with DR Mills pt may benefit from hospice care, I will discuss further tomorrow. Try albumin infusions. Review of Systems Review of Systems: All systems reviewed & are unremarkable except as noted in HPI and below ROS unobtainable: Yes other (Leg edema abdomen swelling ) Exam Const: General: cooperative and healthy appearing; No in distress Nutritional Appearance: overweight Orientation/consciousness: oriented to person Other: Chronically ill appearing HENMT: Head: normal to inspection Resp: Effort & Inspection: no respiratory distress Auscultation: no rhonchi and no wheezes Cardio: Rate: regular rate Rhythm: regular rhythm GI: Inspection: normal to inspection Auscultation: normal bowel sounds Other: Abdominal slightly distended Neuro: General: oriented to person Extrem: Other: R leg redness improved.Swelling in calf up to thighs both
[2020-01-05] MEDS: ALBUMIN HUMAN 25% 25 GM/100 ML 100 ML IVPB (17:53)
[2020-01-05 20:07] VITALS: BP 105/51; PULSE 81; RESP 18; TEMP 36.6; O2SAT 100
[2020-01-05] MEDS: MORPHINE SULFATE (*CRX) 4 MG/ML INJ IV PUSH (21:30)
[2020-01-05 21:33] LABS: Glucose Point of Care 289 (65-105)
[2020-01-05] MEDS: INSULIN ASPART (*BKC) 100 UNITS/ML 6 UNITS SUB-Q (22:10)
[2020-01-06] MEDS: ONDANSETRON INJ 4 MG/2 ML VIAL IV PUSH ×2 (03:52→07:59)
[2020-01-06 04:23] VITALS: BP 130/60; PULSE 98; RESP 16; TEMP 36.5; O2SAT 98
[2020-01-06] MEDS: LEVOTHYROXINE SODIUM 100 MCG TABLET PO (06:55)
[2020-01-06 07:54] LABS: Anion Gap 9 mmol/L (8-16); Blood Urea Nitrogen 94 mg/dL (7-17); Carbon Dioxide 28 mmol/L (22-30); Chloride 103 mmol/L (98-107); Estimated CRCL calculation 23 ml/min; Estimated Glomerular Filt Rate 28; Glucose 160 mg/dL (65-105); Potassium 3.9 mmol/L (3.4-5.0); Sodium 140 mmol/L (137-145)
[2020-01-06 08:00] VITALS: PULSE 98; RESP 16; O2SAT 98
[2020-01-06] MEDS: ceFAZolin 500 MG in DEXTROSE 5% IN WATER 50 ML 100 MG IVPB (08:00)
[2020-01-06] MEDS: BUMETANIDE 1 MG TABLET 2 MG PO (09:55)
[2020-01-06] MEDS: BRIMONIDINE TARTRATE 0.2% OP SOLN 5 ML BTL 1 DROP EACH EYE (09:55)
[2020-01-06] MEDS: FAMOTIDINE 20 MG TABLET PO (09:55)
[2020-01-06] MEDS: EUCERIN CREAM 120 GM JAR 1 APPLIC TOPICAL (09:55)
[2020-01-06] MEDS: terbinafine HCL 250 MG TABLET PO (09:55)
--- NOTE | 2020-01-06 11:58 | PM.DS ---
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 Venous doppler of LEFT leg was negative for clots and right lower extremity Doppler was negative for DVT. Pt leg in improving with IV abx treatment and is being actively treated for cellultis in the hospital. Pt had 5 liters drained from paracentesis few days ago. Pts legs still look very swollen today. Swollen up to belly again. Pt has alot of nausea and vomited bile today. Discussed case with DR Mills pt is not well. Pt is not wanting hospice but knows she is very sick.Pt want to go home despite heavy swelling up to her thighs and severe nausea. I will stop lamisil oral and start topical. I will discharge on zofran and bumex orally. If pt feels sob she can return to ED, or if sickness does not improve pt to return to ED. DS: Discharge Diagnosis Discharge Diagnosis (1) Cellulitis of right leg: Code(s): L03.115 - Cellulitis of right lower limb Status: Acute Assessment and Plan: Pt treated with iv ancef redness improving. Wcc is Nl, BC negative to date. Can continue on keflex on discharge orally. (2) Acute on chronic kidney failure: Code(s): N17.9 - Acute kidney failure, unspecified; N18.9 - Chronic kidney disease, unspecified Status: Acute Assessment and Plan: Creat is 1.8, continue to watch periodically, looks like pts baseline (3) Chronic anemia: Code(s): D64.9 - Anemia, unspecified Status: Acute Assessment and Plan: Hb is 10 (4) Insulin dependent diabetes mellitus: Status: Chronic Assessment and Plan: SSI, accuchecks, glucose is 129 (5) 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 bile duct carcinoma Status: Chronic Assessment and Plan: Chronic under treatment. Pt had paracentesis for ascites. pt had 5 liters taken off, pt has some swelling again in the abdomen. Pt seen by Dr Mills. Poor prognosis pt is aware does not want hospice yet. Wants to go home although she is not quite well today with ongoing swelling and nausea. (6) Non-small cell lung cancer: Onset Date: ~07/2019 Code(s): C34.90 - Malignant neoplasm of unspecified part of unspecified bronchus or lung Status: Chronic Assessment and Plan: Pt is under treatment (7) Hypothyroidism: Code(s): E03.9 - Hypothyroidism, unspecified Status: Acute Assessment and Plan: ON levothyroxine (8) Hypertension: Code(s): I10 - Essential (primary) hypertension Status: Acute Assessment and Plan: Continue to watch BP (9) Gastroesophageal reflux disease: Code(s): K21.9 - Gastro-esophageal reflux disease without esophagitis Status: Acute (10) Lower extremity edema: Code(s): R60.0 - Localized edema Status: Acute Assessment and Plan: Right lower extremity Doppler was negative for DVT and left lower ext was negative. Pt being treated for cellulitis. very edematous on bumex orally sp albumin infusions (11) Tobacco abuse: Code(s): Z72.0 - Tobacco use Status: Acute Assessment and Plan: Adviced to quit (12) Chronic bronchitis: Code(s): J42 - Unspecified chronic bronchitis Status: Chronic Assessment and Plan: Chronic and stable DS: Summary Time Spent with Patient Time attestation: Total time spent providing and/or coordinating discharge services:40 minutes on day of discharge Exam Co
[2020-01-06 11:59] LABS: Glucose Point of Care 157 (65-105)
[2020-01-06 12:27] LABS: Glucose Point of Care 239 (65-105)
[2020-01-06] MEDS: INSULIN ASPART (*BKC) 100 UNITS/ML SUB-Q (12:39)
== END 2020-01-06 13:54 | disposition home or self-care (01) | DRG 603 ==
LOC: ANHED 18:16 → ANH3MED 19:04
PROVIDERS: Emergency Medicine; Physician Assistant; Admitting Provider Internal Medicine; Emergency Provider Emergency Medicine; PCP Nurse Practitioner Family; Visit Provider Family Medicine
DX: L03.115 Cellulitis of right lower limb (principal); N17.9 Acute kidney failure, unspecified; C34.11 Malignant neoplasm of upper lobe, right bronchus or lung; C22.1 Intrahepatic bile duct carcinoma; R18.0 Malignant ascites; I12.9 Hypertensive chronic kidney disease with stage 1 through stage 4 chronic kidney disease, or unspecified chronic kidney disease; E11.22 Type 2 diabetes mellitus with diabetic chronic kidney disease; N18.30 Chronic kidney disease, stage 3 unspecified; K21.9 Gastro-esophageal reflux disease without esophagitis; E78.5 Hyperlipidemia, unspecified; D63.1 Anemia in chronic kidney disease; F17.210 Nicotine dependence, cigarettes, uncomplicated; Z66 Do not resuscitate; J42 Unspecified chronic bronchitis; Z90.710 Acquired absence of both cervix and uterus
CPT/HCPCS: 36415; 49083; 73564; 73590; 73610; 80048; 80053; 83605; 83690; 83735; 84100; 84439; 84443; 84480; 85025; 85027; 85055; 85610; 85652; 85730; 86140; 87040; 93971; 94640; 96361; 96365; 96367; 96375; 99285; A9270; G0378; J0690; J0743; J1815; J2270; J2405; J3370; J7030; P9047

== ENCOUNTER 2020-01-26 10:16 | Outpatient (CLI) | payer MEDICARE, OTHER, SELFPAY ==
--- NOTE | ~2020-01-26 | US_ITS ---
EXAMINATION: US paracentesis abd w/image DATE: 01/26/2020 12:31 INDICATION: Ascites. TECHNIQUE: The procedure and its risks, benefits, and alternatives were discussed with the patient. P otential risks discussed included bleeding and infection. The skin was prepped and draped in sterile fashion. 1% lidocaine was used for local anesthesia. Under ultrasound guidance, a 5 Fr catheter with trochar was advanced into the ascites in the left lower quadrant. Fluid was aspirated. The catheter w as removed, and a dressing was applied. There were no immediate complications. FINDINGS: Ultrasound images demonstrate ascites and the catheter within the fluid. IMPRESSION: 1. Successful ultrasound-guided paracentesis yielding 5000 mL of clear, yellow fluid. Reviewed, dictated and finalized at location A.
== END 2020-01-26 10:17 | disposition home or self-care (01) ==
PROVIDERS: PCP Nurse Practitioner Family; Visit Provider Internal Medicine Hematology & Oncology
DX: C22.1 Intrahepatic bile duct carcinoma (principal)
CPT/HCPCS: 49083